=== PATIENT | female | born 1970 | race Caucasian/White ===

== ENCOUNTER → 2016-10-31 | Outpatient (CLI) | payer BC ==
[~2016-10-31] MED LIST: BCPILLS PO; LEVO75TA5 PO; METO25TA3 PO
[2016-10-31 12:32] LABS: ALT/SGPT 65 U/L (12-78); BLOOD UREA NITROGEN 13 mg/dl (7-18); BUN/CREATININE RATIO 14.5 (10-20); CALCIUM 8.6 mg/dl (8.5-10.1); CARBON DIOXIDE 22 mmol/L (21-32); CHLORIDE 108 mmol/L (98-107); CREATININE 0.89 mg/dl (0.60-1.20); GLUCOSE 84 mg/dl (70-99); POTASSIUM 4.3 mmol/L (3.5-5.1); SODIUM 140 mmol/L (136-145)
[2016-10-31 12:42] LABS: ALKALINE PHOSPHATASE 68 U/L (45-117); AST/SGOT 32 U/L (15-37); CHOLESTEROL 151 mg/dl (0-200); CHOLESTEROL/HDL RATIO 2.1; HDL CHOLESTEROL 73 mg/dl; LDL CHOLESTEROL CALCULATED 54 mg/dl; TRIGLYCERIDES 122 mg/dl (0-150); VERY LOW DENSITY LIPOPROT CALC 24 mg/dl
== END | disposition home or self-care (01) ==
LOC: C.LABBFT 07:45
PROVIDERS: ATTEND Internal Medicine
DX: E03.9 Hypothyroidism, unspecified (principal); I10 Essential (primary) hypertension

== ENCOUNTER → 2016-11-09 | Outpatient (CLI) | payer BC | END | disposition home or self-care (01) | LOC: C.PAPS 13:36 | PROVIDERS: ATTEND Obstetrics & Gynecology | DX: Z01.419 Encounter for gynecological examination (general) (routine) without abnormal findings (principal) ==

== ENCOUNTER 2017-01-07 21:49 | Emergency (ER) | payer BC ==
[~2017-01-07] VITALS: Ht 162.6 cm; Wt 67.7 kg
[2017-01-07] MEDS ORDERED: METOCLOPRAMIDE HCL INJ 5 MG/ML 2 ML VIAL IV STA (22:03)
[2017-01-07] MEDS ORDERED: CEFTRIAXONE SOD INJ 2,000 MG in DEXTROSE 5% 50ML 50 ML IV STA (22:03)
[2017-01-07] MEDS ORDERED: DiphenhydrAMINE HCL 50 MG/ML VIAL IV STA (22:03)
[2017-01-07] MEDS ORDERED: SODIUM CHLORIDE 0.9% 1000ML 2,000 ML IV STA (22:03)
[2017-01-07] MEDS ORDERED: SODIUM CHLORIDE 0.9% 1000ML 1,000 ML IV STA (22:03)
[2017-01-07] MEDS ORDERED: DEXAMETHASONE SOD INJ 10 MG/ML VIAL IV ONE (22:15)
[2017-01-07 22:34] VITALS: Ht 162.6 cm; Wt 67.7 kg
--- NOTE | 2017-01-07 22:41 | DIAGNOSTIC IMAGING REPORT ---
CHEST ONE VIEW PORTABLE HISTORY: Sepsis COMPARISON: None. FINDINGS: The lungs are clear. Cardiac silhouette is normal in size. No pleural effusions. No pneumothorax. IMPRESSION: No acute process. Electronically signed by: Wilfrid Guzman M.D. 01/07/2017 10:40 PM Dictated Date/Time: 01/07/2017 10:39 PM
[2017-01-07 22:48] LABS: COMPLETE YES; HEMATOCRIT 35.8 % (37-47); LYMPH ABS # 0.25 K/uL (1.2-3.4); MEAN CELL VOLUME 82.9 fL (80-100); MEAN CORPUSCULAR HEMOGLOBIN 28.2 pg (25-34); MEAN CORPUSCULAR HGB CONC 34.1 g/dl (32-36); MEAN PLATELET VOLUME 9.8 fL (7.4-10.4); MONO % 0.4 %; NEUT % 90.6 %; PLATELET COUNT 196 K/uL (130-400); RED BLOOD COUNT 4.32 M/uL (4.2-5.4); WHITE BLOOD COUNT 2.79 K/uL (4.8-10.8)
[2017-01-07 23:01] LABS: PARTIAL THROMBOPLASTIN RATIO 0.9; PROTHROMBIN TIME (PATIENT) 10.8 SECONDS (9.0-12.0)
[2017-01-07 23:07] VITALS: O2SAT 96
[2017-01-07 23:09] LABS: BUN/CREATININE RATIO 9.7 (10-20); CALCIUM 8.2 mg/dl (8.5-10.1); CREATININE 0.97 mg/dl (0.60-1.20)
[2017-01-07] MEDS ORDERED: POTASSIUM CHLORIDE 10 MEQ TABCR PO STA ×2 (23:10→23:23)
[2017-01-07] MEDS ORDERED: ACETAMINOPHEN 500 MG TAB PO STA (23:10)
[2017-01-07] MEDS ORDERED: POTASSIUM CHLORIDE 10 MEQ / 100ML WTR IV STA ×2 (23:10→23:23)
[2017-01-07 23:17] LABS: PREG INTERNAL NEGATIVE QC NEG CLEAR BACKGROUND; PREG INTERNAL POSITIVE QC POS CONTROL LINE
[2017-01-07 23:57] LABS: MAGNESIUM 1.6 mg/dl (1.8-2.4)
[2017-01-08 00:05] LABS: CSF APPEARANCE CLEAR; CSF CHEMISTRY TUBE # 2; CSF COLOR COLORLESS; CSF XANTHOCHROMIC NO XANTHOCHROMIA
[2017-01-08] MEDS ORDERED: MAGNESIUM SULFATE 1GM / D5W 1 GM BAG IV STA (00:09)
[2017-01-08 00:26] LABS: LYME DISEASE AB IGG NEG (NEG); LYME DISEASE AB IGM NEG (NEG)
[2017-01-08 00:31] LABS: CSF APPEARANCE CLEAR; CSF COLOR COLORLESS; CSF XANTHOCHROMIC NO XANTHOCHROMIA
[2017-01-08] MEDS ORDERED: IBUPROFEN 600 MG TAB PO STA (00:40)
[2017-01-08 00:44] LABS: CSF TOTAL PROTEIN 31.9 mg/dl (15.0-45.0)
[2017-01-08] MEDS ORDERED: ONDANSETRON HOME PACK 4MG OD TAB PO ONE (00:45)
[2017-01-08 01:02] LABS: INFLUENZA A PCR Neg for Influ A (NEG); INFLUENZA B PCR Neg for Influ B (NEG)
--- NOTE | 2017-01-08 01:04 | EMERGENCY ROOM VISIT NOTE ---
History First contact with patient: 21:55 Chief Complaint: ILLNESS Stated Complaint: STIFF NECK,FEVER,HIGH BLOOD PRESSURE History of Present Illness The patient is a 46 year old female who presents to the Emergency Room with complaints of headache, neck stiffness, fevers, nausea, abdominal discomfort for the past few days who just returned from [place] by train. Patient states Tmax 102. Patient denies sore throat, cough, congestion, vomiting, urinary symptoms, lightheadedness, dizziness. She's not taking anything for her symptoms. Review of Systems See HPI for pertinent positives & negatives. A total of 10 systems reviewed and were otherwise negative. Past Medical/Surgical History Medical Problems: (1) Hyperthyroidism Jeramy's, hypertension, breast reduction Family History No pertinent family history Social History Smoking Status: Never Smoker Alcohol Use: none Drug Use: none Marital Status: Housing Status: lives with family Occupation Status: unemployed Current/Historical Medications Scheduled Control Pills ( Control Pills), 1 TAB PO DAILY Levothyroxine Sodium (Levothyroxine Sodium), 75 MCG PO DAILY Metoprolol Succ (Toprol Xl) (Toprol-Xl), 25 MG PO DAILY Allergies Coded Allergies: Lisinopril (Verified Allergy, Unknown, SWELLING OF FACE, 01/07/17) Physical Exam Vital Signs Date Time Temp Pulse Resp B/P Pulse Ox O2 Delivery O2 Flow Rate FiO2 01/07/17 23:56 37.9 01/07/17 23:51 101 20 115/67 97 Room Air 01/07/17 23:07 96 Room Air 01/07/17 22:58 122 01/07/17 22:54 39.9 01/07/17 21:51 36.7 127 24 134/89 100 Room Air Physical Exam VITALS: Vitals are noted on the nurse's note and reviewed by myself. Vital signs tachycardic. GENERAL: Pleasant female mildly ill-appearing, nondiaphoretic, well-developed well-nourished. SKIN: The skin was without rashes, erythema, edema, or bruising. There is no tenting of the skin. Capillary reflex less than 2 seconds. HEAD: Normocephalic atraumatic. EARS: External auditory canals clear, tympanic membranes pearly solitario without erythema or effusion bilaterally. EYES: Pupils equal round and reactive to light and accommodation. Conjunctivae without injection, sclerae without icterus. Extraocular movements intact. NOSE: Patent, turbinates without inflammation or discharge. No sinus tenderness. MOUTH: Mucous membranes moist. Pharynx without erythema or exudate. Uvula midline. Airway patent. Tongue does not deviate. NECK: Supple, pain with chin to chest to the posterior neck. No lymphadenopathy. No thyromegaly. Cervical spine is nontender. No JVD. HEART: Tachycardic Regular rate and rhythm without murmurs gallops or rubs. LUNGS: Clear to auscultation bilaterally without wheezes, rales or rhonchi. No dullness to percussion. No retractions or accessory muscle use. ABDOMEN: Positive bowel sounds x 4. Normal tympanic percussion. Soft, nontender, without masses or organomegaly. Bravo sign negative. No guarding or rebound tenderness. No CVA tenderness MUSCULOSKELETAL: No muscle atrophy, erythema, or edema noted. NEURO: Patient was alert and oriented to person place and time. Normal sensation to light and sharp touch. No focal neurological deficits. Medical Decision & Procedures Laboratory Results 01/07/17 22:29 Red Blood Count 4.32, Mean Corpuscular Volume 82.9, Mean Corpuscular Hemoglobin 28.2, Mean Corpuscular Hemoglobin Concent 34.1, Mean Platelet Volume 9.8, Neutrophils (%) (Auto) 90.6, Lymphocytes (%) (Auto) 9.0, Monocytes (%) (Auto) 0.4, Eosinophils (%) (Auto) 0.0, Basophils (%) (Auto) 0.0, Neutrophils # (Auto) 2.53, Lymphocytes # (Auto) 0.25, Monocytes # (Auto) 0.01, Eosinophils # (Auto) 0.00, Basophils # (Auto) 0.00 01/07/17 22:29 Test 01/07/17 22:29 01/07/17 22:37 01/07/17 22:54 01/07/17 23:30 White Blood Count 2.79 K/uL (4.8-10.8) Red Blood Count 4.32 M/uL (4.2-5.4) Hemoglobin 12.2 g/dL (12.0-16.0) Hematocrit 35.8 % (37-47) Mean Corpuscular Volume 82.9 fL (80-100) Mean Corpuscular Hemoglobin 28.2 pg (25-34) Mean Corpuscular Hemoglobin Concent 34.1 g/dl (32-36) Platelet Count 196 K/uL (130-400) Mean Platelet Volume 9.8 fL (7.4-10.4) Neutrophils (%) (Auto) 90.6 % Lymphocytes (%) (Auto) 9.0 % Monocytes (%) (Auto) 0.4 % Eosinophils (%) (Auto) 0.0 % Basophils (%) (Auto) 0.0 % Neutrophils # (Auto) 2.53 K/uL (1.4-6.5) Lymphocytes # (Auto) 0.25 K/uL (1.2-3.4) Monocytes # (Auto) 0.01 K/uL (0.11-0.59) Eosinophils # (Auto) 0.00 K/uL (0-0.5) Basophils # (Auto) 0.00 K/uL (0-0.2) RDW Standard Deviation 42.0 fL (36.4-46.3) RDW Coefficient of Variation 13.7 % (11.5-14.5) Immature Granulocyte % (Auto) 0.0 % Immature Granulocyte # (Auto) 0.00 K/uL (0.00-0.02) Prothrombin Time 10.8 SECONDS (9.0-12.0) Prothromb Time International Ratio 1.0 (0.9-1.1) Activated Partial Thromboplast Time 23.9 SECONDS (21.0-31.0) Partial Thromboplastin Ratio 0.9 Anion Gap 10.0 mmol/L (3-11) Est Creatinine Clear Calc Drug Dose 69.3 ml/min Estimated GFR () 81.8 Estimated GFR (Non- 70.5 BUN/Creatinine Ratio 9.7 (10-20) Calcium Level 8.2 mg/dl (8.5-10.1) Magnesium Level 1.6 mg/dl (1.8-2.4) Total Bilirubin 0.7 mg/dl (0.2-1) Aspartate Amino Transf (AST/SGOT) 31 U/L (15-37) Alanine Aminotransferase (ALT/SGPT) 31 U/L (12-78) Alkaline Phosphatase 68 U/L (45-117) Total Protein 7.2 gm/dl (6.4-8.2) Albumin 3.6 gm/dl (3.4-5.0) Globulin 3.6 gm/dl (2.5-4.0) Albumin/Globulin Ratio 1.0 (0.9-2) Human Chorionic Gonadotropin, Qual NEG (NEG) Lyme Disease IgG Antibody NEG (NEG) Lyme Disease IgM Antibody NEG (NEG) Bedside Lactic Acid Venous 1.77 mmol/L (0.90-1.70) Influenza Type A Antigen Neg for Influ A (NEG) Influenza Type B Antigen Neg for Influ B (NEG) CSF Color COLORLESS CSF Appearance CLEAR CSF WBC 2 /uL (0-5) CSF RBC 0 /uL (0) CSF Xanthrochromic NO XANTHOCHROMIA CSF Cell Count Tube # 1 CSF Chemistry Tube # 2 CSF Glucose 53 mg/dl (40-70) CSF Total Protein 31.9 mg/dl (15.0-45.0) Medications Administered Medications (Trade) Dose Ordered Sig/Yessica Route Start Time Stop Time Status Last Admin Dose Admin Sodium Chloride 2,000 ml @ 999 mls/hr Q2H1M STAT IV 01/07/17 22:03 01/08/17 00:03 DC 01/07/17 22:40 999 MLS/HR Sodium Chloride (Nss 1000ml) 1,000 ml @ 125 mls/hr Q8H STAT IV 01/07/17 22:03 01/08/17 06:02 01/07/17 23:28 125 MLS/HR Dexamethasone Sodium Phosphate (Decadron Inj) 10 mg NOW ONCE IV 01/07/17 22:15 01/07/17 22:16 DC 01/07/17 22:39 10 MG Diphenhydramine HCl (Benadryl Inj) 12.5 mg NOW STAT IV 01/07/17 22:03 01/07/17 22:06 DC 01/07/17 22:39 12.5 MG Metoclopramide HCl 10 mg 10 mg NOW STAT IV 01/07/17 22:03 01/07/17 22:06 DC 01/07/17 22:39 10 MG Ceftriaxone Sodium/Dextrose (Rocephin Inj/D5 50ml) 70 ml @ 100 mls/hr ONE STAT IV 01/07/17 22:03 01/07/17 22:44 DC 01/07/17 23:14 100 MLS/HR Acetaminophen (Tylenol Tab) 1,000 mg NOW STAT PO 01/07/17 23:10 01/07/17 23:11 DC 01/07/17 23:14 1,000 MG Potassium Chloride (Klor-Con M10) 40 meq NOW STAT PO 01/07/17 23:23 01/07/17 23:25 DC 01/07/17 23:28 40 MEQ Potassium Chloride (Kcl 10 Meq / Wtr) 10 meq NOW STAT IV 01/07/17 23:23 01/07/17 23:25 DC 01/07/17 23:28 10 MEQ Magnesium Sulfate (Magnesium Sulfate) 2 gm NOW STAT IV 01/08/17 00:09 01/08/17 00:11 DC 01/08/17 00:45 2 GM Ibuprofen (Motrin Tab) 600 mg NOW STAT PO 01/08/17 00:40 01/08/17 00:41 DC 01/08/17 00:45 600 MG ED Course Prior records/ancillary studies reviewed. Triage Nursing notes reviewed. Additional history obtained from family. The patient's history was concerning for fever. Differential diagnosis: Etiologies such as viral syndrome, otitis, pharyngitis, pneumonia, influenza, meningitis, urinary tract infection, sepsis, bacteremia, as well as others were entertained. Physical examination: Patient is alert, ill-appearing ER treatment provided: IV fluids, Rocephin, Decadron On reassessment the patient felt better. Diagnostics interpreted by me: ECG: Normal sinus, normal intervals, T wave inversions in the anteroseptal leads , rate of 120. Impression sinus tachycardia T wave in the anteroseptal leads most likely rate dependent interpreted by myself The labs revealed stable H&H. Mildly elevated lactic. Negative CSF, blood cultures pending Imaging studies: Head CT negative for intercranial bleed per stat radiology HISTORY: Sepsis COMPARISON: None. FINDINGS: The lungs are clear. Cardiac silhouette is normal in size. No pleural effusions. No pneumothorax. IMPRESSION: No acute process. Electronically signed by: Wilfrid Guzman M.D. This appears to be consistent with headache and fever most likely viral in etiology. CSF was negative for meningitis. Blood cultures are pending. Flu was negative. Systems negative. Patient felt much better after being medicated as above. She is advised to rest, stay well-hydrated and to follow-up family care in a few days or here in the ER sooner for spinal headache, fevers, neck stiffness, worsening signs or symptoms or as needed. Patient was neurovascularly and neurologically intact. She felt greatly improved after being medicated as above. By the evaluation outlined above emergent etiologies such as otitis, pharyngitis, pneumonia, meningitis, urinary tract infection, sepsis, bacteremia , as well as others were deemed relatively unlikely. The pt informed about the findings as listed above. All questions were answered and pleased with the treatment. Return instructions were outlined and the patient was discharged in stable condition. Outpatient prescription management: Zofran Referral: The patient was referred back to their primary care physician for follow-up in 2 to 3 days for a recheck of the current condition. Case reviewed with my attending Medical Decision As above Impression Primary Impression: Viral illness Additional Impressions: Hypokalemia Headache Hypomagnesemia Fever Departure Information Referrals RV. Charles MD (PCP) Patient Instructions My [facility] Problem Qualifiers
[2017-01-08 02:36] VITALS: BP 101/67; PULSE 85; TEMP 36.9; O2SAT 97
--- NOTE | 2017-01-08 06:24 | DIAGNOSTIC IMAGING REPORT ---
HEAD CT NONCONTRAST CT DOSE: 614.27 mGy.cm HISTORY: Mental status change NICHOLS/neck stiff TECHNIQUE: Multiaxial CT images of the head were performed without the use of intravenous contrast. Comparison: None. Findings: The paranasal sinuses and mastoid air cells are clear. The calvarium and skull base are intact. The ventricles and sulci are within normal limits. There is no mass, hematoma, midline shift, or acute infarct. Impression: No acute intracranial abnormality. Electronically signed by: Willie Martinez M.D. 01/08/2017 6:23 AM Dictated Date/Time: 01/08/2017 6:21 AM
[2017-01-09] MEDS ORDERED: LEVO75TA5 PO (05:06)
[2017-01-09] MEDS ORDERED: BCPILLS PO (05:06)
--- NOTE | 2017-01-09 09:58 | EDITING REQUIRED CODING QUERY ---
CODING QUERY To promote full compliance with coding requirements relating to patient care, provider participation is requested in all cases of senior engineering team leader uncertainty. Please assist us with the question(s) below: Coding Question(s): Note states in several places that the CSF was negative, however there is nothing noting the procedure was actually done. Can you please confirm and add a note about the procedure? Physician's Response(s): I did a LP on the patient. Thank you Lina Stapleton Principal Diagnosis: "_that condition established after study, to be chiefly responsible for occasioning the admission of the patient to the hospital for care." Co-Existing Principal Diagnosis: "_when two or more diagnoses equally meet the criteria for principal diagnosis as determined by the circumstances of admission, diagnostic work up, and/or therapy provided, and the Alphabetic Index, Tabular List, or another coding guideline does not provide sequencing direction, any one of the diagnoses may be sequenced first." "When the physician has documented what appears to be a current diagnosis in the body of the record, but has not included the diagnosis in the final diagnostic statement, the physician should be asked whether the diagnosis should be added." (Source Coding [facility] 2 QTR90. p3-4)
[2017-01-09] MEDS ORDERED: METO25TA3 PO (22:13)
== END 2017-01-08 02:52 | disposition home or self-care (01) ==
LOC: C.EDB 21:51 → C.EDA 01-08 02:52
DX: B34.9 Viral infection, unspecified (principal); E87.6 Hypokalemia; R51 Headache; E83.42 Hypomagnesemia; R50.9 Fever, unspecified; M43.6 Torticollis; E05.90 Thyrotoxicosis, unspecified without thyrotoxic crisis or storm; E06.3 Autoimmune thyroiditis; I10 Essential (primary) hypertension; Z79.3 Long term (current) use of hormonal contraceptives

== ENCOUNTER 2017-01-09 15:31 | Emergency (ER) | payer BC ==
[~2017-01-09] VITALS: Ht 162.6 cm; Wt 67.0 kg
[~2017-01-09 15:31] MED LIST changes: -METO25TA3 PO
[2017-01-09 15:35] VITALS: TEMP 36.7; Ht 162.6 cm; Wt 67.0 kg
[2017-01-09] MEDS ORDERED: KETOROLAC TROMETHAMINE 30 MG/ML VIAL IV STA (15:46)
[2017-01-09] MEDS ORDERED: SODIUM CHLORIDE 0.9% 1000ML 2,000 ML IV STA (15:46)
[2017-01-09] MEDS ORDERED: CAFFEINE CITRATE IV SCH (15:46)
[2017-01-09] MEDS ORDERED: ONDANSETRON INJ 2 MG/ML 2 ML VIAL IV STA (15:46)
[2017-01-09] MEDS ORDERED: PROMETHAZINE HCL INJ 6.25 MG in SODIUM CHLORIDE 0.9% 50ML 50 ML IV STA (15:46)
[2017-01-09] MEDS ORDERED: DiphenhydrAMINE HCL 50 MG/ML VIAL IV STA (15:46)
[2017-01-09] MEDS ORDERED: DEXTROSE 5% IV SCH (15:46)
--- NOTE | 2017-01-09 16:02 | EMERGENCY ROOM VISIT NOTE ---
History Report prepared by Sandra: Claire Baca Under the Supervision of: Dr. Teofilo Norman M.D. First contact with patient: 15:39 Chief Complaint: HEADACHE Stated Complaint: VOMITING, SEVERE HEADACHE History of Present Illness The patient is a 46 year old female who presents to the Emergency Room with complaints of persistent headache starting 2 days ago. She was seen in the ED 2 days ago and diagnosed with viral illness. Lab tests showed low WBC consistent with a virus. She had a spinal tap with no evidence of meningitis. Since then she has had a headache. She describes it as a pressure in the back of her head. Her headache improves when she is lying flat and worsens when she stands up. She has been taking Tylenol and Motrin to no significant relief. She has begun to vomit. She had some blood when blowing her nose. She reports pressure in her lower back. She denies any numbness, weakness, diarrhea, fever, abdominal pain, cough, or urinary symptoms. Source of History: patient Onset: 2 days ago Position: head Quality: pressure Timing: other (persistent) Modifying Factors (Worsening): other (standing) Modifying Factors (Relieving): other (lying flat) Associated Symptoms: + vomiting, No abdominal pain, No cough, No diarrhea, No fevers, No numbness, No urinary symptoms, No weakness Note: Pt reports blood when blowing nose, lower back pressure. Review of Systems See HPI for pertinent positives & negatives. A total of 10 systems reviewed and were otherwise negative. Past Medical & Surgical Medical Problems: (1) Hyperthyroidism Family History No pertinent family history Social History Smoking Status: Never Smoker Alcohol Use: none Drug Use: none Marital Status: Housing Status: lives with family Occupation Status: unemployed Current/Historical Medications Scheduled Control Pills ( Control Pills), 1 TAB PO DAILY Levothyroxine Sodium (Levothyroxine Sodium), 75 MCG PO DAILY Metoprolol Succ (Toprol Xl) (Toprol-Xl), 25 MG PO DAILY Allergies Coded Allergies: Lisinopril (Verified Allergy, Unknown, SWELLING OF FACE, 01/09/17) Physical Exam Vital Signs Date Time Temp Pulse Resp B/P Pulse Ox O2 Delivery O2 Flow Rate FiO2 01/09/17 17:33 66 18 144/93 100 Room Air 01/09/17 16:41 85 01/09/17 16:30 100 Room Air 01/09/17 15:35 36.7 82 16 166/96 98 Room Air Physical Exam GENERAL: Patient is in no acute distress. HEENT: No acute trauma, normocephalic atraumatic, mucous membranes moist, no nasal congestion, no scleral icterus. Pupils equal and reactive to light. NECK: No stridor, no adenopathy, no meningismus, trachea is midline. LUNGS: Clear to auscultation bilaterally, no wheeze, no rhonchi, breath sounds equal. HEART: Without murmurs gallops or rubs, regular rate and rhythm. ABDOMEN: Soft, nontender, bowel sounds positive, no hernias, no peritonitis. EXTREMITIES: No cyanosis or edema, full range of motion of all the joints without pain or difficulty, no signs for acute trauma. NEUROLOGIC: Oriented x 3, no acute motor or sensory deficits, no focal weakness. No pronator drift or cerebellar dysfunction. SKIN: No rash, no jaundice, no diaphoresis. Medical Decision & Procedures Laboratory Results 01/09/17 16:05 Red Blood Count 4.73, Mean Corpuscular Volume 82.7, Mean Corpuscular Hemoglobin 27.1, Mean Corpuscular Hemoglobin Concent 32.7, Mean Platelet Volume 10.0, Neutrophils (%) (Auto) 71.5, Lymphocytes (%) (Auto) 24.4, Monocytes (%) (Auto) 3.6, Eosinophils (%) (Auto) 0.3, Basophils (%) (Auto) 0.1, Neutrophils # (Auto) 4.89, Lymphocytes # (Auto) 1.67, Monocytes # (Auto) 0.25, Eosinophils # (Auto) 0.02, Basophils # (Auto) 0.01 01/09/17 16:05 Test 01/09/17 16:05 White Blood Count 6.85 K/uL (4.8-10.8) Red Blood Count 4.73 M/uL (4.2-5.4) Hemoglobin 12.8 g/dL (12.0-16.0) Hematocrit 39.1 % (37-47) Mean Corpuscular Volume 82.7 fL (80-100) Mean Corpuscular Hemoglobin 27.1 pg (25-34) Mean Corpuscular Hemoglobin Concent 32.7 g/dl (32-36) Platelet Count 278 K/uL (130-400) Mean Platelet Volume 10.0 fL (7.4-10.4) Neutrophils (%) (Auto) 71.5 % Lymphocytes (%) (Auto) 24.4 % Monocytes (%) (Auto) 3.6 % Eosinophils (%) (Auto) 0.3 % Basophils (%) (Auto) 0.1 % Neutrophils # (Auto) 4.89 K/uL (1.4-6.5) Lymphocytes # (Auto) 1.67 K/uL (1.2-3.4) Monocytes # (Auto) 0.25 K/uL (0.11-0.59) Eosinophils # (Auto) 0.02 K/uL (0-0.5) Basophils # (Auto) 0.01 K/uL (0-0.2) RDW Standard Deviation 42.5 fL (36.4-46.3) RDW Coefficient of Variation 14.0 % (11.5-14.5) Immature Granulocyte % (Auto) 0.1 % Immature Granulocyte # (Auto) 0.01 K/uL (0.00-0.02) Anion Gap 9.0 mmol/L (3-11) Est Creatinine Clear Calc Drug Dose 92.9 ml/min Estimated GFR () 117.2 Estimated GFR (Non- 101.1 BUN/Creatinine Ratio 8.3 (10-20) Calcium Level 8.7 mg/dl (8.5-10.1) Laboratory results reviewed by me. Medications Administered Medications (Trade) Dose Ordered Sig/Yessica Route Start Time Stop Time Status Last Admin Dose Admin Sodium Chloride (Nss 1000ml) 2,000 ml @ 999 mls/hr Q2H1M STAT IV 01/09/17 15:46 01/09/17 17:46 DC 01/09/17 16:27 999 MLS/HR Ondansetron HCl (Zofran Inj) 4 mg NOW STAT IV 01/09/17 15:46 01/09/17 15:49 DC 01/09/17 16:29 4 MG Ketorolac Tromethamine (Toradol Inj) 30 mg NOW STAT IV 01/09/17 15:46 01/09/17 15:49 DC 01/09/17 16:29 30 MG Diphenhydramine HCl 25 mg 25 mg NOW STAT IV 01/09/17 15:46 01/09/17 15:49 DC 01/09/17 16:28 25 MG Promethazine HCl 6.25 mg/Sodium Chloride 50.25 ml @ 204 mls/hr NOW STAT IV 01/09/17 15:46 01/09/17 16:00 DC 01/09/17 16:28 204 MLS/HR Caffeine Citrated/ Dextrose (Caffeine Citrate/D5 50ml) 75 ml @ 100 mls/hr TODAY@1546 IV 01/09/17 15:46 01/09/17 23:59 01/09/17 16:45 100 MLS/HR ED Course 1542: The patient was evaluated in room B11B. A complete history and physical exam was performed. 1546: Caffeine Citrated 500 mg/Dextrose 75 ml @ 100 mls/hr IV, Promethazine HCl 6.25 mg/Sodium Chloride 50.25 ml @ 204 mls/hr IV, Benadryl Inj 25 mg IV, Toradol Inj 30 mg IV, Zofran Inj 4 mg IV, NSS 2000 ml @ 999 mls/hr IV. 1655: I reevaluated the patient. She is feeling better. I will consult with anesthesiology to determine the best course of action. 1716: I discussed the patient's case with Dr. Fabian, [facility] - anesthesiology. He will come evaluate the patient and decide upon whether or not to do a blood patch. 1742: I reevaluated the patient. She felt OK standing up to go to the bathroom. Anesthesiology has not yet arrived. 1800: The patient was signed out to Dr. Senior at the end of my shift. Medical Decision Differential diagnosis: dehydration, spinal headache, flu like illness, electrolyte imbalance, anemia, meningitis, intracranial bleeding, migraine There is no leukocytosis or concerning anemia. No significant electrolyte abnormality or kidney failure. The patient is not febrile or toxic in appearance. She has a nonfocal neurologic evaluation. She describes a headache which is positional and consistent with a spinal headache. Patient received IV saline, IV Phenergan, IV Zofran, IV Benadryl and IV Toradol. She was given IV caffeine. She is feeling improved. I did have the anesthesiologist paged. The patient will be seen by anesthesia for the possibility of undergoing a blood patch. Of note, the patient has been up to the bathroom. She did well with really no headache. She was slightly lightheaded though. Her care is being assumed by Dr. Carmelo Senior at the change of shift. We still are waiting the anesthesiologist's evaluation. Consults Time Called: 1655 Consulting Physician: Dr. Fabian, [facility] - anesthesiology Returned Call: [phone] I discussed the patient's case with him. He will come evaluate the patient and decide upon whether or not to do a blood patch. Impression Primary Impression: Dehydration Additional Impressions: Vomiting Spinal headache Scribe Attestation The scribe's documentation has been prepared under my direction and personally reviewed by me in its entirety. I confirm that the note above accurately reflects all work, treatment, procedures, and medical decision making performed by me. Departure Information Dispostion Still a Patient Referrals RV. Charles MD (PCP) Patient Instructions My [facility] Problem Qualifiers
[2017-01-09 16:21] LABS: BASO % 0.1 %; BASO ABS # 0.01 K/uL (0-0.2); COMPLETE YES; EOS % 0.3 %; HEMATOCRIT 39.1 % (37-47); IG% 0.1 %; LYMPH % 24.4 %; LYMPH ABS # 1.67 K/uL (1.2-3.4); MEAN CELL VOLUME 82.7 fL (80-100); MEAN CORPUSCULAR HEMOGLOBIN 27.1 pg (25-34); MEAN CORPUSCULAR HGB CONC 32.7 g/dl (32-36); MONO % 3.6 %; NEUT % 71.5 %; PLATELET COUNT 278 K/uL (130-400); RED BLOOD COUNT 4.73 M/uL (4.2-5.4); WHITE BLOOD COUNT 6.85 K/uL (4.8-10.8)
[2017-01-09 16:30] VITALS: O2SAT 100
[2017-01-09 16:52] LABS: BUN/CREATININE RATIO 8.3 (10-20); CALCIUM 8.7 mg/dl (8.5-10.1); CREATININE 0.72 mg/dl (0.60-1.20); POTASSIUM 3.7 mmol/L (3.5-5.1)
--- NOTE | 2017-01-09 19:23 | Anesthesiology Progress Note ---
Anesthesia Progress Note Date of Service January 09, 2017. Progress Notes I was called by Dr. Norman regarding a possible postdural puncture headache. I evaluated the patient in the ER. The patient recently had a dural puncture to rule out meningitis, which came back negative. She states having a positional headache that improves when laying down. I spoke to the patient concerning the risks/benefits of an epidural blood patch. I also suggested conservative therapy , which consisted of fluids, over the counter analgesics, and caffeine. The patient chose to have an epidural blood patch. Consent was obtained from the patient. A timeout was completed before starting the procedure. The back was prepped sterilely. L3-4 space was identified. A skin wheal with 1% lidocaine was made. A 17G Touhy needle was advance until + ANAND to air. 20mL was sterilely obtained from the pt's LUE. 20mL was inserted to the epidural space. The pt stated improvement after the procedure. I told the patient to return to the ER if her headache returned, if she develops back pain, if she develops fevers/ chills, or if she develops a gait disturbance. The pt was understanding. Care was returned to the ER.
[2017-01-09 20:03] VITALS: BP 152/96; PULSE 71; O2SAT 100
[2017-01-09] MEDS ORDERED: METO25TA3 PO (22:13)
--- NOTE | 2017-01-10 00:27 | EMERGENCY ROOM VISIT NOTE ---
ED Visit Note 46 yr old female signed out to me awaiting Anesthesia evaluation for post LP spinal headache treatment. She was given blood patch. Feeling much improved. Discharged feeling well and in no distress.
== END 2017-01-09 20:19 | disposition home or self-care (01) ==
LOC: C.EDB 15:32
DX: E86.0 Dehydration (principal); R11.10 Vomiting, unspecified; T88.59XA Other complications of anesthesia, initial encounter; R51 Headache; E05.90 Thyrotoxicosis, unspecified without thyrotoxic crisis or storm; Z79.3 Long term (current) use of hormonal contraceptives

== ENCOUNTER → 2017-04-18 | Outpatient (CLI) | payer BC ==
[~2017-04-18] MED LIST changes: +METO25TA3 PO
== END | disposition home or self-care (01) ==
LOC: C.LABBFT 10:21
PROVIDERS: ATTEND Internal Medicine
DX: E03.9 Hypothyroidism, unspecified (principal)

== ENCOUNTER → 2017-09-13 | Outpatient (CLI) | payer BC | END | disposition home or self-care (01) | LOC: C.PATHSPEC 17:32 | PROVIDERS: ATTEND Dermatology | DX: C44.712 Basal cell carcinoma of skin of right lower limb, including hip (principal) ==

== ENCOUNTER → 2017-09-17 | Outpatient (CLI) | payer BC ==
--- NOTE | 2017-09-18 14:37 | MAMMOGRAPHY REPORT ---
BILATERAL DIGITAL SCREENING MAMMOGRAM TOMOSYNTHESIS WITH CAD: 09/17/2017 CLINICAL HISTORY: Routine screening. TECHNIQUE: Breast tomosynthesis in addition to standard 2D mammography was performed. Current study was also evaluated with a Computer Aided Detection (CAD) system. COMPARISON: Comparison is made to exams dated: 04/06/2016 mammogram, 03/30/2015 mammogram, 11/28/2013 manjula mogram, 11/22/2012 mammogram, 11/07/2011 mammogram, and 09/15/2010 mammogram - [facility]. BREAST COMPOSITION: There are scattered areas of fibroglandular density in both breasts. FINDINGS: There are a few scattered stable benign-appearing calcifications in the breasts. No new ivesron spicious mass, architectural distortion or cluster of microcalcifications is seen. IMPRESSION: ACR BI-RADS CATEGORY 1: NEGATIVE There is no mammographic evidence of malignancy. A 1 year screening mammogram is recommended. The pa tient will receive written notification of the results. Approximately 10% of breast cancers are not detected with mammography. A negative mammographic report should not delay biopsy if a clinically suggestive mass is present. Lori Bowser M.D. ay/:09/17/2017 15:07:11 Recovery Agent: Ezekiel SPEARS(R)(Janice), [facility] letter sent: Normal 1/2 BI-RADS Code: ACR BI-RADS Category 1: Negative
== END | disposition home or self-care (01) ==
LOC: C.MAMM 14:11
PROVIDERS: ATTEND Internal Medicine
DX: Z12.31 Encounter for screening mammogram for malignant neoplasm of breast (principal)

== ENCOUNTER → 2017-12-31 | Outpatient (CLI) | payer BC | END | disposition home or self-care (01) | LOC: C.PAPS 15:32 | PROVIDERS: ATTEND Obstetrics & Gynecology | DX: Z01.419 Encounter for gynecological examination (general) (routine) without abnormal findings (principal) ==

== ENCOUNTER → 2018-03-18 | Outpatient (CLI) | payer BC ==
[2018-03-18 17:45] LABS: BASO % 0.2 %; BASO ABS # 0.01 K/uL (0-0.2); EOS % 0.8 %; EOS ABS # 0.05 K/uL (0-0.5); HEMATOCRIT 42.3 % (37-47); HEMOGLOBIN 14.2 g/dL (12.0-16.0); IG# 0.01 K/uL (0.00-0.02); LYMPH % 40.6 %; MEAN CELL VOLUME 88.5 fL (80-100); MEAN CORPUSCULAR HEMOGLOBIN 29.7 pg (25-34); MEAN CORPUSCULAR HGB CONC 33.6 g/dl (32-36); MEAN PLATELET VOLUME 10.9 fL (7.4-10.4); MONO % 7.8 %; MONO ABS # 0.52 K/uL (0.11-0.59); NEUT % 50.4 %; NEUT ABS # 3.36 K/uL (1.4-6.5); PLATELET COUNT 320 K/uL (130-400); RED CELL DISTRIBUTION WIDTH CV 12.9 % (11.5-14.5); RED CELL DISTRIBUTION WIDTH SD 41.4 fL (36.4-46.3); WHITE BLOOD COUNT 6.65 K/uL (4.8-10.8)
[2018-03-18 18:05] LABS: BLOOD UREA NITROGEN 10 mg/dl (7-18); CALCIUM 9.2 mg/dl (8.5-10.1); CARBON DIOXIDE 23 mmol/L (21-32); CREATININE 0.91 mg/dl (0.60-1.20); GLUCOSE 91 mg/dl (70-99); POTASSIUM 4.3 mmol/L (3.5-5.1); SODIUM 138 mmol/L (136-145)
== END | disposition home or self-care (01) ==
LOC: C.LABBFT 15:29
PROVIDERS: ATTEND Nurse Practitioner Adult Health
DX: R10.2 Pelvic and perineal pain (principal)

== ENCOUNTER → 2018-03-22 | Outpatient (CLI) | payer BC ==
--- NOTE | 2018-03-22 09:04 | DIAGNOSTIC IMAGING REPORT ---
ABDOMINAL ULTRASOUND COMPLETE HISTORY: Generalized abdominal pain.. COMPARISON: None. FINDINGS: Pancreas: The pancreas demonstrates a normal echotexture. Liver: Unremarkable. Gallbladder: No gallbladder wall thickening. No gallstones. A 4 mm gallbladder polyp. CBD: 2 mm. Kidneys: No hydronephrosis. Spleen: Normal in size. Aorta: Normal in caliber. IVC: Patent. IMPRESSION: 1. A 4 mm gallbladder polyp. 2. Otherwise, no significant abnormality within the abdomen. Electronically signed by: Wilfrid Guzman M.D. 03/22/2018 9:03 AM Dictated Date/Time: 03/22/2018 9:01 AM
== END | disposition home or self-care (01) ==
LOC: C.ULTR 07:54
PROVIDERS: ATTEND Nurse Practitioner Adult Health
DX: R10.9 Unspecified abdominal pain (principal); K82.4 Cholesterolosis of gallbladder

== ENCOUNTER → 2018-03-27 | Outpatient (CLI) | payer BC ==
--- NOTE | 2018-03-27 14:52 | DIAGNOSTIC IMAGING REPORT ---
KUB HISTORY: Chronic constipation. Generalized abdominal pain. COMPARISON: Chest and abdominal series 03/30/2016. FINDINGS: The bowel gas pattern is unremarkable. There are no dilated loops of small bowel to suggest an obstruction. No renal calculi. No ureteral calculi. Calcifications in the deep pelvis likely represent phleboliths. No pneumoperitoneum or pneumatosis. Small amount of well-formed stool seen within the colon. IMPRESSION: 1. No evidence for bowel obstruction. 2. Small amount of well-formed stool seen within the colon. This is improved in the interval. Electronically signed by: Wilfrid Guzman M.D. 03/27/2018 2:51 PM Dictated Date/Time: 03/27/2018 2:50 PM
== END | disposition home or self-care (01) ==
LOC: C.RAD1850 14:30
PROVIDERS: ATTEND Nurse Practitioner Adult Health
DX: K59.09 Other constipation (principal); R10.9 Unspecified abdominal pain

== ENCOUNTER → 2018-04-04 | Outpatient (CLI) | payer BC ==
[~2018-04-04] MED LIST changes: +OPTIRAY 320 IV PRN
--- NOTE | 2018-04-04 13:45 | DIAGNOSTIC IMAGING REPORT ---
ABD/PELVIS IV AND ORAL CONT CLINICAL HISTORY: 48 years-old Female presenting with R10.32 LLQ pain. TECHNIQUE: Multidetector CT of the abdomen and pelvis was performed after the administration of oral and intravenous contrast. IV contrast: None. A dose lowering technique was used consistent with the principles of ALARA (as low as reasonably achievable). COMPARISON: None. CT DOSE (mGy.cm): The estimated cumulative dose is 672.89 mGycm. FINDINGS: Stump Blower topogram: Unremarkable. Lung bases: Lungs and pleural spaces clear. Normal heart size. No pericardial or pleural effusion. Liver: Normal morphology. No liver lesion. Patent hepatic vasculature. Biliary: No intrahepatic or extrahepatic biliary ductal dilatation. Gallbladder decompressed. Pancreas: Normal. Spleen: Normal. Adrenal glands: Normal. Kidneys and ureters: Normal. No hydronephrosis. Bladder: Normal. Pelvic organs: Uterus and ovaries normal. Dominant follicle noted in the left ovary. Bowel: Normal. No bowel obstruction. Peritoneal cavity: No free fluid or intraperitoneal gas. Lymph nodes: No enlarged lymph nodes in the abdomen or pelvis. Vasculature: Aorta and IVC patent and normal in caliber. Abdominal wall: Normal. Musculoskeletal: Normal. IMPRESSION: 1. No acute intra-abdominal pathology. Electronically signed by: Shayne Mason M.D. 04/04/2018 1:44 PM Dictated Date/Time: 04/04/2018 1:36 PM
== END | disposition home or self-care (01) ==
LOC: C.CTS 12:46
PROVIDERS: ATTEND Physician Assistant
DX: R10.32 Left lower quadrant pain (principal)

== ENCOUNTER 2025-06-02 20:11 | Inpatient (IN) ==
[2025-06-02 20:44] LABS: Hematocrit (blood only) 41.5 % (37.0-47.0); Hemoglobin 14.7 g/dl (12.0-16.0); Immature Granulocytes # (auto) 0.06 K/uL (0.01-0.20); Immature Granulocytes % (auto) 0.4 %; Mean Corpuscular Hemoglobin 29.6 pg (25.0-34.0); Mean Corpuscular Volume 83.7 fL (80.0-100.0); Platelet Count 338 K/uL (130-400); RDW Standard Deviation 35.0 fL (36.4-46.3); Red Blood Count 4.96 M/uL (4.20-5.40); White Blood Count 14.94 K/ul (4.8-10.8)
--- NOTE | 2025-06-02 20:52 | Emergency Department Note ---
Impression & Plan Acute appendicitis, Abdominal pain, Acute hypokalemia ED Provider Note NAME: JUDY IBRAHIM AGE: 55 SEX: F : 1970 ARRIVES VIA: Walk-In INFORMANT: Patient, ED PROVIDER(S): Cole Marley MD CHIEF COMPLAINT: Abdominal pain MEDICAL DECISION MAKING: Patient presents with the above. Patient does have periumbilical and right lower quadrant pain. IV was established and blood work was obtained. CT abdomen pelvis also ordered. Patient declining pain or nausea medication at this time. Patient did request pain medication and nausea medication. The patient was placed in a wheelchair and reportedly had a vagal episode and became very dizzy. The patient was placed back into bed. IV fluids ordered in addition to IV morphine 4 mg and IV Zofran 4 mg. Patient still having nausea so was ordered 5 of IV Reglan and 12.5 of IV Benadryl. Patient subsequently taken to CAT scan. Patient with white count of 14 with a normal hemoglobin and platelet count kidney function unremarkable. Mild hypokalemia at 2.9. Calcium of 10.6. LFTs unremarkable. Beta-hCG negative. Urinalysis does not show evidence of obvious infection. CT abdomen pelvis does show concern for acute appendicitis. No perforation or abscess. I did inform the patient of the findings. I did speak with the on-call general surgery team Eliecer Gonzalez PA-C under Dr. Oliveira. Recommended IV Zosyn is likely will take to the OR in the morning. Patient was admitted to the general surgery service. Liter of IV fluids. Discussion w/ other healthcare providers: Eliecer Gonzalez PA-C with Dr. Oliveira general surgery Prior /Outside records reviewed: none Differential diagnosis: Appendicitis, ovarian cyst, ovarian torsion, ectopic , TOA, PID, diverticulitis, UTI, obstruction, inflammatory bowel disease, renal colic, PUD, pancreatitis, biliary pathology, hernia, volvulus, constipation, as well as other pathologies were considered. Diagnostics, as interpreted by me: ECG: Normal sinus rhythm, rate of 97, normal intervals, normal axis no ST elevations. T wave version noted in lead III. Cardiac monitoring: An order was placed for continuous cardiac monitoring. The monitor shows a rate of 89 with sinus rhythm. Patient was placed on pulse oximetry Medical decision rules: None Imaging studies: I informally interpreted the patient's CT ab pelvis does not show evidence of obvious obstruction with formal report to follow. HPI: Patient presents due to concern for abdominal pain. Patient did admit that earlier today it seemed to be in her right upper quadrant but has been associated in the area around her [facility]. Patient has had some nausea but no vomiting. No known sick contacts and recent travel. The patient denies any chest pains or shortness of breath. She did feel little chilled yesterday. No chest pains or shortness of breath. Patient did take some Tums at home. Patient states that she did have a bowel movement this morning which was a little soft. No blood in urine or stool and denies any dysuria or hematuria. PAST MEDICAL HISTORY: See Below PAST SURGICAL HISTORY: See Below SOCIAL HISTORY: See Below HOME MEDICATIONS: See Below ALLERGIES: See Below VITALS: See Below PHYSICAL EXAMINATION: GENERAL: NAD, non-toxic. EYE EXAM: Normal conjunctiva. PERRL, no anisocoria and EOM's grossly intact w/o pain. OROPHARYNX: Moist mucus membranes, grossly normal dentition. NECK: Trachea midline, no stridor. LUNGS: Clear to auscultation. Normal chest wall mechanics. HEART: NSR, no MRG. ABDOMEN: Abdomen soft, periumbilical and right lower quadrant pain, negative obturators and psoas, no masses, no rebound or guarding. BACK: No CVA TTP. SKIN: No rashes and no bruising. UPPER EXTREMITIES: Upper extremities are grossly normal. LOWER EXTREMITIES: Grossly normal, no edema. NEURO EXAM: Awake and alert, follows commands, no obvious facial asymmetry, normal speech, moves all 4 extremities. Past Med/Surg History Problem List (Updated 06/03/25 @ 00:28 by Cole Marley MD) Acute hypokalemia (Acute) Abdominal pain (Acute) Acute appendicitis (Acute) Appendicitis Menopause Menopause Thyroid nodule Fatigue Low grade B-cell lymphoma Overweight (BMI 25.0-29.9) Vitamin B12 deficiency Left knee DJD Vestibular migraine Migraine without aura and responsive to treatment Abnormal finding on MRI of brain Numbness and tingling of both feet Numbness and tingling of both upper extremities Health care maintenance Acne vulgaris (Acute) Anxiety (Acute) Chronic constipation (Acute) Dysplastic nevus (Acute) Jeramy's thyroiditis (Acute) Hearing loss (Acute) Hypertension (Acute) Hypothyroidism (Acute) Neoplasm of uncertain behavior of skin (Acute) Medical History Tiredness Left knee pain Head ache Insomnia Abnormality of right breast on screening mammogram Breast calcification, right Right ear injury Surgical History Status post breast reduction H/O oral surgery Family History Grandfather (Paternal) Coronary heart disease Cancer Grandfather (Maternal) Coronary heart disease Myocardial infarction Father Guillain-[place] syndrome Hypertension Mother Hypertension Grandmother (Maternal) Breast cancer Grandfather (Paternal) Stroke Denies family history of Ovarian cancer Prostate cancer Colorectal cancer Social History Smoking Status: Never smoker Do You Dip or Chew Tobacco: No; Hx Alcohol Use: Yes Hx Substance Use: No Preferred Language: Indian Communication Ability: Effective Audio/Video Technician Required: No Beliefs That Will Affect Care: None marital status: Current Living Situation: Spouse current occupational status: unemployed Feels Safe at Home: Yes Childhood Exposure to Second-Hand Smoke: No caffeine: Yes Dental Care, Regularly: Yes Physical Activity Frequency: 3-4 Times per Week Seatbelt Use: always Sunscreen Use: Yes Allergies Allergies Allergy/AdvReac Type Severity Reaction Status Date / Time lisinopril Allergy Unknown SWELLING Verified 06/02/25 23:04 OF FACE hydralazine AdvReac Unknown Verified 06/02/25 23:04 nifedipine AdvReac Unknown Verified 06/02/25 23:04 nitrofurantoin AdvReac Unknown Verified 06/02/25 23:04 [From Macrobid] venlafaxine [From Effexor] AdvReac Unknown Verified 06/02/25 23:04 Home Meds Home Medications Medication Instructions Recorded Confirmed meclizine 25 mg tablet 25 mg PO TID PRN dizziness 05/16/22 06/02/25 cyanocobalamin (vitamin B-12) 1,000 mcg PO DAILY 04/17/24 06/02/25 1,000 mcg capsule cetirizine 10 mg tablet (Zyrtec) 10 mg PO DAILY PRN Allergy Symptoms 11/13/24 06/02/25 magnesium glycinate 400 mg PO DAILY 03/30/25 06/02/25 biotin 5 mg capsule 5 mg PO DAILY 06/02/25 06/02/25 buspirone 5 mg tablet 5 mg PO BID PRN Anxiety 06/02/25 06/02/25 psyllium husk 0.52 gram capsule 1.04 g PO DAILY 06/02/25 06/02/25 Previous Rx's Medication Instructions Recorded ondansetron 4 mg disintegrating 4 mg PO Q8H PRN nausea and 11/22/20 tablet vomiting #90 tabs chlorthalidone 25 mg tablet 12.5 mg (1/2 x 25 mg) PO DAILY #30 08/07/24 tabs linaclotide 290 mcg capsule 290 mcg PO DAILY #90 caps 12/26/24 (Linzess) levothyroxine 75 mcg tablet 75 mcg PO DAILY #90 tabs 01/28/25 metoprolol succinate 100 mg 100 mg PO DAILY #30 tabs 03/13/25 tablet,extended release 24 hr tirzepatide (weight loss) 2.5 2.5 mg (0.5 mL) subcut Q7D #2 mL 03/17/25 mg/0.5 mL subcutaneous pen injector (Zepbound) Results & Data (ED) Vital Signs Vital Signs - 24 hr 06/02/25 20:17 06/02/25 20:23 06/02/25 21:00 Temperature 36.8 C Temperature Source Oral Pulse Rate 103 H 95 H 97 H Pulse Rate from SpO2 Sensor 102 H Respiratory Rate 18 20 20 Respiratory Effort / Characteristics Non-Labored Spontaneous Respiratory Depth Normal Respiratory Pattern Regular Blood Pressure 154/93 H Blood Pressure Mean 113 Pulse Oximetry 98 95 98 Oxygen Delivery Method Room Air Room Air Sepsis Recent Fever Within 48 Hours No Sepsis New/Unexplained Change in Mental Status No Sepsis Action Taken by Nursing No Action Required 06/02/25 21:01 06/02/25 21:01 06/02/25 21:08 Temperature Temperature Source Pulse Rate 93 H Pulse Rate from SpO2 Sensor Respiratory Rate Respiratory Effort / Characteristics Respiratory Depth Respiratory Pattern Blood Pressure 139/101 H 139/101 H Blood Pressure Mean 107 107 Pulse Oximetry Oxygen Delivery Method Sepsis Recent Fever Within 48 Hours Sepsis New/Unexplained Change in Mental Status Sepsis Action Taken by Nursing 06/02/25 21:18 06/02/25 21:28 06/02/25 21:30 Temperature Temperature Source Pulse Rate 99 H Pulse Rate from SpO2 Sensor 99 H Respiratory Rate 21 Respiratory Effort / Characteristics Respiratory Depth Respiratory Pattern Blood Pressure 147/92 H 154/87 H Blood Pressure Mean 104 107 Pulse Oximetry 98 Oxygen Delivery Method Sepsis Recent Fever Within 48 Hours Sepsis New/Unexplained Change in Mental Status Sepsis Action Taken by Nursing 06/02/25 21:30 06/02/25 21:30 06/02/25 21:42 Temperature Temperature Source Pulse Rate 104 H 93 H Pulse Rate from SpO2 Sensor 104 H 93 H Respiratory Rate 24 19 Respiratory Effort / Characteristics Respiratory Depth Respiratory Pattern Blood Pressure 154/87 H Blood Pressure Mean 107 Pulse Oximetry 96 92 Oxygen Delivery Method Sepsis Recent Fever Within 48 Hours Sepsis New/Unexplained Change in Mental Status Sepsis Action Taken by Nursing 06/02/25 21:54 06/02/25 21:57 06/02/25 22:11 Temperature Temperature Source Pulse Rate 97 H 108 H Pulse Rate from SpO2 Sensor 98 H 107 H Respiratory Rate 32 H 25 H Respiratory Effort / Characteristics Respiratory Depth Respiratory Pattern Blood Pressure 143/77 H Blood Pressure Mean 90 Pulse Oximetry 98 98 Oxygen Delivery Method Sepsis Recent Fever Within 48 Hours Sepsis New/Unexplained Change in Mental Status Sepsis Action Taken by Nursing 06/02/25 22:11 06/02/25 22:21 Temperature Temperature Source Pulse Rate 96 H Pulse Rate from SpO2 Sensor 96 H Respiratory Rate 20 Respiratory Effort / Characteristics Respiratory Depth Respiratory Pattern Blood Pressure 143/77 H Blood Pressure Mean 90 Pulse Oximetry 97 Oxygen Delivery Method Sepsis Recent Fever Within 48 Hours Sepsis New/Unexplained Change in Mental Status Sepsis Action Taken by Detention Medications Current Medication List: was personally reviewed by me Laboratory Data Attestation: I reviewed the patient's lab results. 06/02/25 20:32 06/02/25 20:32 Lab Results 06/02/25 06/02/25 06/03/25 Range/Units 20:32 20:37 00:02 WBC 14.94 H (4.8-10.8) K/ul RBC 4.96 (4.20-5.40) M/uL Hgb 14.7 (12.0-16.0) g/dl POC Hgb 14.3 (12.0-16.0) g/dl Hct 41.5 (37.0-47.0) % POC Hct 42 (37-47) % MCV 83.7 (80.0-100.0) fL MCH 29.6 (25.0-34.0) pg MCHC 35.4 (32.0-36.0) g/dL RDW Std Deviation 35.0 L (36.4-46.3) fL RDW Coeff of Priya 11.7 (11.5-14.5) % Plt Count 338 (130-400) K/uL MPV 9.6 (9.4-12.4) fL Immature Gran % (Auto) 0.4 % Neut % (Auto) 84.3 % Lymph % (Auto) 10.8 % [place] % (Auto) 4.2 % Eos % (Auto) 0.1 % Baso % (Auto) 0.2 % Neut # (Auto) 12.60 H (1.40-6.50) K/uL Lymph # (Auto) 1.61 (1.20-3.40) K/uL [place] # (Auto) 0.63 H (0.11-0.59) K/uL Eos # (Auto) 0.01 (0.00-0.50) K/uL Baso # (Auto) 0.03 (0.00-0.20) K/uL Immature Gran # (Auto) 0.06 (0.01-0.20) K/uL PT 11.2 (9.0-12.0) Seconds INR 1.1 (0.9-1.1) APTT 32 H (21-31) Seconds PTT Ratio 1.2 POC Sodium 135 (135-144) mmol/L Sodium 134 L (136-145) mmol/L POC Potassium 2.8 L (3.3-5.0) mmol/L Potassium 2.9 L (3.5-5.1) mmol/L POC Chloride 94 L (101-112) mmol/L Chloride 96 L (98-107) mmol/L Carbon Dioxide 28 (21-32) mmol/L POC Total CO2 27 (24-31) mmol/L Anion Gap 10 (3-11) POC Anion Gap 17.0 (16-25) mmol/L POC BUN 12 (7-18) mg/dl BUN 12 (6-23) mg/dl Creatinine 0.86 (0.6-1.2) mg/dl POC Creatinine 0.9 (0.6-1.3) mg/dl Est Cr Clr Drug Dosing 72.6 ml/min eGFR 80.23 BUN/Creatinine Ratio 14.0 (10-20) Glucose 125 H (70-99(Fasting)) mg/dl POC Glucose (other) 126 H (70-99) mg/dl Calcium 10.6 H (8.6-10.3) mg/dl POC Ioniz Calcium Manav 1.22 (1.12-1.32) mmol/l Total Bilirubin 0.7 (0.2-1.0) mg/dl AST 18 (13-39) U/L ALT 14 (7-52) U/L Alkaline Phosphatase 91 (34-104) U/L Total Protein 7.9 (6.0-8.3) gm/dl Albumin 4.6 (3.4-5.0) gm/dl Globulin 3.3 (2.5-4.0) gm/dl Albumin/Globulin Ratio 1.4 (0.9-2) Lipase 34 (11-82) U/L HCG, Qual Negative (Negative) Urine Color Yellow Urine Appearance Clear (Clear) Urine pH 6.0 (4.5-7.5) Ur Specific [place] 1.036 H (1.000-1.030) Urine Protein Negative (Negative) Urine Glucose (UA) Negative (Negative) Urine Ketones 1+ H (Negative) Urine Blood Trace H (Negative) Urine Nitrite Negative (Negative) Urine Bilirubin Negative (Negative) Urine Urobilinogen Negative (Negative) Ur Leukocyte Esterase Negative (Negative) Urine WBC (Auto) 0-5 (0-5) /hpf Urine RBC (Auto) 0-2 (0-2) /hpf U Hyaline Cast (Auto) 0-2 (0-2) /lpf U Epithel Cells (Auto) 0-2 (0-2) /hpf Urine Bacteria (Auto) None Seen (None Seen) Urine Comment Administered Medications Discontinued Medications Diphenhydramine HCl (Diphenhydramine 50 Mg/Ml Vial) 12.5 mg IV NOW STA Stop: 06/02/25 21:51 Last Admin: 06/02/25 21:54 Dose: 12.5 mg Documented By: YAJAIRA Sodium Chloride (Nss) 1,000 mls @ 999 mls/hr IV .Q1H1M ONE Stop: 06/02/25 22:26 Last Infusion: 06/02/25 22:32 Dose: Infused Documented By: Admin: 06/02/25 21:28 Dose: 999 mls/hr Documented By: GIO Cefoxitin Sodium (Mefoxin) 2,000 mg in 60 mls @ 100 mls/hr IV NOW STA Stop: 06/02/25 23:21 Last Admin: 06/02/25 22:54 Dose: Not Given Documented By: YAJAIRA Piperacillin Sod/Tazobactam Sod (Zosyn) 4.5 gm in 100 mls @ 200 mls/hr IV NOW ONE; Protocol Stop: 06/02/25 23:17 Last Infusion: 06/02/25 23:30 Dose: Infused Documented By: Admin: 06/02/25 22:54 Dose: 200 mls/hr Documented By: YAJAIRA Ioversol (Optiray 320 100ml) 90 ml IV ONCE ONE Stop: 06/02/25 22:04 Last Admin: 06/02/25 22:03 Dose: 90 ml Documented By: JURGEN Metoclopramide HCl (Metoclopramide Hcl Inj 5 Mg/Ml 2 Ml Vial) 5 mg IV NOW STA Stop: 06/02/25 21:51 Last Admin: 06/02/25 21:54 Dose: 5 mg Documented By: YAJAIRA Morphine Sulfate (Morphine Sulfate 4 Mg/Ml 1 Ml Carp\Vial) 4 mg IV NOW STA Stop: 06/02/25 21:27 Last Admin: 06/02/25 21:28 Dose: 4 mg Documented By: GIO Ondansetron HCl (Ondansetron Inj 2 Mg/Ml 2 Ml Vial) 4 mg IV NOW STA Stop: 06/02/25 21:27 Last Admin: 06/02/25 21:28 Dose: 4 mg Documented By: GIO Imaging Data Radiologist's Impression: Abdomen/Pelvis CT 06/02/25 20:48 CR Exam(s): CT ABDOMEN + PELVIS With Contrast IV Amt: 90 ml optiray 320 EXAM: CT Abdomen and Pelvis With Intravenous Contrast CLINICAL HISTORY: Reason for exam: periumb and RLQ pain. TECHNIQUE: Axial computed tomography images of the abdomen and pelvis with intravenous contrast. CTDI is 21.06 mGy and DLP is 1003.7 mGy-cm. Automated exposure control was utilized for the study. A dose lowering technique was utilized adhering to the principles of ALARA. CONTRAST: Patient received 90 ml optiray 320 of IV contrast COMPARISON: PET/CT 05/06/2025 . FINDINGS: ABDOMEN: Liver: Unremarkable. Gallbladder and bile ducts: Unremarkable. Pancreas: Unremarkable. Spleen: Unremarkable. Adrenals: Unremarkable. Kidneys and ureters: Unremarkable. No obstructing stones. No hydronephrosis. Stomach and bowel: Unremarkable. PELVIS: Appendix: The appendix is inflamed and distended up to 1.5 cm. Periappendiceal fat stranding present. Gas fills and distends the appendix. No definitive perforation. No abscess. Bladder: Unremarkable. Reproductive: Unremarkable as visualized. ABDOMEN and PELVIS: Intraperitoneal space: Unremarkable. No free air. No significant fluid collection. Bones/joints: No acute fracture. Soft tissues: Unremarkable. Vasculature: Unremarkable. Lymph nodes: Unremarkable. IMPRESSION: Acute appendicitis. No perforation or abscess. Communications: Verify Receipt Electronically signed by: Luis Felipe Guallpa MD 06/02/25 22:40 PM Chest X-Ray 06/02/25 23:17 Chest radiograph, one view History: Preop Comparison: None Findings: Single AP view of the chest performed. No focal consolidation or pleural effusion. No pneumothorax. The cardiomediastinal silhouette is within normal limits. Normal pulmonary vascularity. No evidence for lymphadenopathy. No visualized bony or soft tissue abnormality. Impression: Normal chest radiograph Electronically signed by Jamar Joshi 06-02-2025 11:42 PM Discharge Plan Visit Data Chief Complaint: Abdominal Pain Stated Complaint: ABD PAIN ALL DAY, CONCERN ABOUT APPENDICITIS ED Provider: Cole Marley Discharge Problem: Acute appendicitis, Abdominal pain, Acute hypokalemia Patient Disposition: Admitted As Inpatient Condition: Good Forms Stand Alone Forms: [facility] [place] Prescriptions Prescriptions: No Action Linzess 290 mcg capsule 290 mcg PO DAILY Qty: 90 3RF Hold Instructions: insurance cost levothyroxine 75 mcg tablet 75 mcg PO DAILY Qty: 90 1RF Rx Instructions: Half tablet on Sunday only Full tablet rest of the days of the week metoprolol succinate 100 mg tablet extended release 24 hr 100 mg PO DAILY Qty: 30 5RF Zepbound 2.5 mg/0.5 mL pen injector 2.5 mg subcut Q7D Qty: 2 3RF ondansetron 4 mg tablet,disintegrating 4 mg PO Q8H PRN (Reason: nausea and vomiting) Qty: 90 1RF meclizine 25 mg tablet 25 mg PO TID PRN (Reason: dizziness) chlorthalidone 25 mg tablet 12.5 mg PO DAILY Qty: 30 5RF magnesium glycinate 100 mg magnesium capsule 400 mg PO DAILY cyanocobalamin (vitamin B-12) 1,000 mcg capsule 1,000 mcg PO DAILY cetirizine [Zyrtec] 10 mg tablet 10 mg PO DAILY PRN (Reason: Allergy Symptoms) buspirone 5 mg tablet 5 mg PO BID PRN (Reason: Anxiety) biotin 5 mg Capsule 5 mg PO DAILY psyllium husk 0.52 gram Capsule 1.04 g PO DAILY Referrals Referrals: Mariely Ponce MD [Primary Care Provider] - Discharge Problem: Acute appendicitis Qualifiers: Acute appendicitis type: with localized peritonitis Appendicitis gangrene presence: without gangrene Appendicitis perforation presence: without perforation Appendicitis abscess presence: without abscess Qualified Code(s): K 35.30 - Acute appendicitis with localized peritonitis, without perforation or gangrene Abdominal pain Qualifiers: Abdominal location: right lower quadrant Qualified Code(s): R10.31 - Right lower quadrant pain
[2025-06-02 21:03] LABS: Alanine Aminotransferase 14.0 U/L (7-52); Albumin Globulin Ratio 1.4 (0.9-2); Albumin Level 4.6 gm/dl (3.4-5.0); Alkaline Phosphatase 91.0 U/L (34-104); Anion Gap 10.0 (3-11); Bilirubin,Total 0.7 mg/dl (0.2-1.0); Blood Urea Nitrogen 12.0 mg/dl (6-23); Calcium 10.6 mg/dl (8.6-10.3); Carbon Dioxide 28.0 mmol/L (21-32); Chloride 96.0 mmol/L (98-107); Creatinine Clr Calc Pharmacy 72.6 ml/min; Globulin 3.3 gm/dl (2.5-4.0); Glucose 125.0 mg/dl (70-99(Fasting)); Lipase 34.0 U/L (11-82); Potassium 2.9 mmol/L (3.5-5.1); Sodium 134.0 mmol/L (136-145); Total Protein 7.9 gm/dl (6.0-8.3)
[2025-06-02] MEDS: ONDANSETRON INJ 2 MG/ML 2 ML VIAL IV STA (21:28)
[2025-06-02] MEDS: SODIUM CHLORIDE 0.9% 1,000 ML IV ONE (21:28)
[2025-06-02] MEDS: MoRPHine SULFATE 4 MG/ML 1 ML CARP\\VIAL IV STA (21:28)
[2025-06-02] MEDS: diphenhydrAMINE 50 MG/ML VIAL IV STA (21:54)
[2025-06-02] MEDS: METOCLOPRAMIDE HCL INJ 5 MG/ML 2 ML VIAL IV STA (21:54)
[2025-06-02] MEDS: OPTIRAY 320 100ml IV ONE (22:03)
--- NOTE | 2025-06-02 22:41 | CT Scan Report ---
Exam(s): CT ABDOMEN + PELVIS With Contrast IV Amt: 90 ml optiray 320 EXAM: CT Abdomen and Pelvis With Intravenous Contrast CLINICAL HISTORY: Reason for exam: periumb and RLQ pain. TECHNIQUE: Axial computed tomography images of the abdomen and pelvis with intravenous contrast. CTDI is 21.06 mGy and DLP is 1003.7 mGy-cm. Automated exposure control was utilized for the study. A dose lowering technique was utilized adhering to the principles of ALARA. CONTRAST: Patient received 90 ml optiray 320 of IV contrast COMPARISON: PET/CT 05/06/2025 . FINDINGS: ABDOMEN: Liver: Unremarkable. Gallbladder and bile ducts: Unremarkable. Pancreas: Unremarkable. Spleen: Unremarkable. Adrenals: Unremarkable. Kidneys and ureters: Unremarkable. No obstructing stones. No hydronephrosis. Stomach and bowel: Unremarkable. PELVIS: Appendix: The appendix is inflamed and distended up to 1.5 cm. Periappendiceal fat stranding present. Gas fills and distends the appendix. No definitive perforation. No abscess. Bladder: Unremarkable. Reproductive: Unremarkable as visualized. ABDOMEN and PELVIS: Intraperitoneal space: Unremarkable. No free air. No significant fluid collection. Bones/joints: No acute fracture. Soft tissues: Unremarkable. Vasculature: Unremarkable. Lymph nodes: Unremarkable. IMPRESSION: Acute appendicitis. No perforation or abscess. Communications: Verify Receipt Electronically signed by: Luis Felipe Guallpa MD 06/02/25 22:40 PM
[2025-06-02] MEDS: PIPERACILLIN/TAZOBACTAM 4.5 GM/100 ML BAG IV ONE (22:54)
[2025-06-02] MEDS: cefOXitin 2,000 MG/60 ML BAG IV STA (22:54)
[2025-06-02] MEDS ORDERED: ONDANSETRON INJ 2 MG/ML 2 ML VIAL IV PRN (23:09)
[2025-06-02] MEDS ORDERED: ACETAMINOPHEN 1,000 MG/100 ML VIAL IV PRN (23:09)
--- NOTE | 2025-06-02 23:24 | History & Physical Report ---
Date of Service June 02, 2025 Assessment & Plan (1) Appendicitis: Plan: Due to the patient's clinical presentation as well as the findings on labs and imaging she will be admitted to the surgical service proceeding as follows: Analgesics will be provided Antiemetics to be provided N.p.o. status will be implemented/maintained Will hydrate the patient with intravenous fluids, supplementing her potassium as she is noted to have hypokalemia We will recheck a chemistry profile in the morning to reassess her potassium Will check a test Will check a preoperative chest x-ray Will check a preoperative EKG The treating emergency room physician has initiated antibiotics in the form of Zosyn and these will continue At the present time the patient is nontoxicshe is normotensive without fever and only has a slight tachycardia. We are tentatively planning on having the patient undergo an appendectomy with Dr. Oliveira of [facility] physician of general surgery on 06/03/2025 Will use SCDs for DVT prevention, no chemical means with planned surgery Additional recommendations to be forthcoming based on her clinical course as it unfolds She will be a level 1 full code Addendum: EKG showed normal sinus rhythm without changes indicative of acute ischemia Chest x-ray showed no evidence of pneumonia Coagulation studies showed an INR 1.1 and a PTT of 32 seconds - test (-) Addendum (5:45 am) Patient noted to have hypokalemia at time of admission. She was given two 10 mEq K riders as well as provided with supplemental potassium and her IV fluids. Nursing staff subsequent notified me that she is complaining of irritation from her maintenance fluids and therefore the fluid was switched to normal saline solution without potassium. Repeat potassium level this morning shows potassium has increased to 3.2. Will provide her with 2 additional K riders of 10 mill equivalents each. Patient also reassessed at bedside. She notes continued right lower quadrant abdominal pain but it is no worse than what was noted in the emergency department. I discussed with nurse attending to the patient she has been afebrile hemodynamically stable. History of Present Illness Chief Complaint: Abdominal pain Primary Care Provider: Mariely Ponce MD This is a 55-year-old female who presented to the emergency department secondary to abdominal pain that began earlier this morning. The patient does admit that on 06/01/2025 she did not feel quite like herself and then developed abdominal pain which is located just inferior to her umbilicus. She notes that the pain does not radiate or have any other mitigating factors. She says that her last oral intake was at 7:30 AM this morning and she has not had much of an appetite the remainder of the day. She denies any fevers. She denies any prior abdominal surgeries. The patient does report that she had breast reduction surgery several years ago and developed a DVT in her left arm for which she took a short course of anticoagulants but notes that she has not been on anticoagulants since they have been discontinued. The patient also reports that she was recently diagnosed with lymphoma in November of this year. She follows with Dr. Walden locally. 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 She notes that she is not receiving any active treatment for this lymphoma and they are merely observing her with serial labs and imaging studies. Of note, the patient was noted to have some type of lesion in her right femur for which she is scheduled to see an orthopedic surgeon as there and are uncertain if this represents a possible malignant lesion. I did question patient by her diagnosis of lymphoma and she said that this was identified on routine lab work that she was having during an annual physical checkup with her primary care physician. She notes that she really had nothing in the way of symptomatology other than occasional night sweats which she felt was secondary to menopause. Since arrival to the emergency department this evening she has had labs and imaging which I independently reviewed. A CT scan of the abdomen pelvis was performed and this showed the patient had findings concerning for acute appendicitisthe appendix was noted to be inflamed and distended up to 1.5 cm with periappendiceal fat stranding. There is no evidence of perforation or abscess. Labs included CBC were white blood cell count was elevated 14.9. Hemoglobin and hematocrit as well as a platelet count were normal. Chemistry profile showed sodium was 134 with a potassium of 2.9. BUN and creatinine were both normal. There is no elevation of her LFTs or lipase. I did discuss with the nurse attending to the patient, and a near syncopal episode was reported when the patient tried to sit up. It was felt that the patient had a vasovagal episode as she was complaining of some abdominal pain at that time. Following this episode she was administered some analgesics and has not had any recurrence of this episode. At the time of my interview the patient was resting comfortably in bed and she was in no distress. Allergies Allergy/AdvReac Type Severity Reaction Status Date / Time lisinopril Allergy Unknown SWELLING Verified 06/02/25 23:04 OF FACE hydralazine AdvReac Unknown Verified 06/02/25 23:04 nifedipine AdvReac Unknown Verified 06/02/25 23:04 nitrofurantoin AdvReac Unknown Verified 06/02/25 23:04 [From Macrobid] venlafaxine [From Effexor] AdvReac Unknown Verified 06/02/25 23:04 Home Medications Medication Instructions Recorded Confirmed Type ondansetron 4 mg disintegrating 4 mg PO Q8H PRN nausea and 11/22/20 06/02/25 Rx tablet vomiting #90 tabs meclizine 25 mg tablet 25 mg PO TID PRN dizziness 05/16/22 06/02/25 History cyanocobalamin (vitamin B-12) 1,000 mcg PO DAILY 04/17/24 06/02/25 History 1,000 mcg capsule chlorthalidone 25 mg tablet 12.5 mg (1/2 x 25 mg) PO DAILY #30 08/07/24 06/02/25 Rx tabs cetirizine 10 mg tablet (Zyrtec) 10 mg PO DAILY PRN Allergy Symptoms 11/13/24 06/02/25 History linaclotide 290 mcg capsule 290 mcg PO DAILY #90 caps 12/26/24 06/02/25 Rx (Linzess) levothyroxine 75 mcg tablet 75 mcg PO DAILY #90 tabs 01/28/25 06/02/25 Rx metoprolol succinate 100 mg 100 mg PO DAILY #30 tabs 03/13/25 06/02/25 Rx tablet,extended release 24 hr tirzepatide (weight loss) 2.5 2.5 mg (0.5 mL) subcut Q7D #2 mL 03/17/25 06/02/25 Rx mg/0.5 mL subcutaneous pen injector (Zepbound) magnesium glycinate 400 mg PO DAILY 03/30/25 06/02/25 History biotin 5 mg capsule 5 mg PO DAILY 06/02/25 06/02/25 History buspirone 5 mg tablet 5 mg PO BID PRN Anxiety 06/02/25 06/02/25 History psyllium husk 0.52 gram capsule 1.04 g PO DAILY 06/02/25 06/02/25 History Past Med/Surg History Problem List (Updated 06/03/25 @ 00:28 by Cole Marley MD) Acute hypokalemia (Acute) Abdominal pain (Acute) Acute appendicitis (Acute) Appendicitis Menopause Menopause Thyroid nodule Fatigue Low grade B-cell lymphoma Overweight (BMI 25.0-29.9) Vitamin B12 deficiency Left knee DJD Vestibular migraine Migraine without aura and responsive to treatment Abnormal finding on MRI of brain Numbness and tingling of both feet Numbness and tingling of both upper extremities Health care maintenance Acne vulgaris (Acute) Anxiety (Acute) Chronic constipation (Acute) Dysplastic nevus (Acute) Jeramy's thyroiditis (Acute) Hearing loss (Acute) Hypertension (Acute) Hypothyroidism (Acute) Neoplasm of uncertain behavior of skin (Acute) Medical History Tiredness Left knee pain Head ache Insomnia Abnormality of right breast on screening mammogram Breast calcification, right Right ear injury Surgical History Status post breast reduction H/O oral surgery Family History Grandfather (Paternal) Coronary heart disease Cancer Grandfather (Maternal) Coronary heart disease Myocardial infarction Father Guillain-Clearfield syndrome Hypertension Mother Hypertension Grandmother (Maternal) Breast cancer Grandfather (Paternal) Stroke Denies family history of Ovarian cancer Prostate cancer Colorectal cancer Social History Smoking Status: Never smoker Second Hand Exposure: No; Do You Dip or Chew Tobacco: No; Hx Alcohol Use: Yes Alcohol type: wine Hx Substance Use: No Preferred Language: [place] Communication Ability: Effective Flight Communications Specialist Required: No Beliefs That Will Affect Care: None marital status: Current Living Situation: Spouse current occupational status: unemployed Other Information That Helps Us Care for You: No Feels Safe at Home: Yes Safety Concerns: Feels Safe At This Time Childhood Exposure to Second-Hand Smoke: No caffeine: Yes Dental Care, Regularly: Yes Physical Activity Frequency: 3-4 Times per Week Seatbelt Use: always Sunscreen Use: Yes Review of Systems Review of Systems: All systems reviewed & are unremarkable except as noted in HPI & below Physical Exam Constitutional: WD/WN, vitals as above Eyes: no conjunctival abnormality ENMT: Ears: no hearing impairment and no external ear abnormality Mouth: no oropharynx abnormality Neck: trachea midline Respiratory: normal respiratory effort; no respiratory distress and no labored breathing Cardiovascular: Rate/Rhythm: regular rate and regular rhythm Vessels: dorsalis pedis pulses present and radial pulses present Gastrointestinal (Abdomen): Patient's abdomen is soft and nonrigid. There is no rebound tenderness, guarding, or signs of peritonitis. The patient did have pain with palpation just inferior to the umbilicus and also to a greater degree on the right lower quadrant over McBurney's point. I did not appreciate any hernias on exam Musculoskeletal: No calf tenderness. Feet are warm and well-perfused Skin: no rashes Neurologic: moves all extremities Psychiatric: A+Ox3, euthymic affect Results & Data Results & Data Vital Signs (Past 12 Hours) Vital Signs Temp Pulse Resp BP Pulse Ox O2 Del Method 06/02/25 22:21 96 H 20 97 06/02/25 22:11 143/77 H 06/02/25 22:11 143/77 H 06/02/25 21:57 108 H 25 H 98 06/02/25 21:54 97 H 32 H 98 06/02/25 21:42 93 H 19 92 06/02/25 21:30 104 H 24 96 06/02/25 21:30 154/87 H 06/02/25 21:30 154/87 H 06/02/25 21:28 147/92 H 06/02/25 21:18 99 H 21 98 06/02/25 21:08 93 H 06/02/25 21:01 139/101 H 06/02/25 21:01 139/101 H 06/02/25 21:00 97 H 20 98 06/02/25 20:23 95 H 20 95 Room Air 06/02/25 20:17 36.8 C 103 H 18 154/93 H 98 Room Air PG Care Time/CCT Total # of Minutes Spent Total Time Spent with Patient: Total time spent is greater than 50% in coordination of care (as documented) at patient's floor/unit and/or counseling patient: Coding Level of Care Code 52516 INT INP/OBS CARE 3/75MIN Diagnoses Appendicitis K37
[2025-06-02 23:36] LABS: INR 1.1 (0.9-1.1); Partial Thromboplastin Time 32 Seconds (21-31); Prothrombin Time 11.2 Seconds (9.0-12.0)
[2025-06-02 23:39] LABS: Pregnancy Test, Serum Negative (Negative)
--- NOTE | 2025-06-02 23:42 | XRay Report ---
Chest radiograph, one view History: Preop Comparison: None Findings: Single AP view of the chest performed. No focal consolidation or pleural effusion. No pneumothorax. The cardiomediastinal silhouette is within normal limits. Normal pulmonary vascularity. No evidence for lymphadenopathy. No visualized bony or soft tissue abnormality. Impression: Normal chest radiograph Electronically signed by Jamar Joshi 06-02-2025 11:42 PM
[2025-06-03 00:17] LABS: Appearance Urine Clear (Clear); Bacteria Urine Automated None Seen (None Seen); Cast Urine Automated 0-2 /lpf (0-2); Epithelial Cell Urine Auto 0-2 /hpf (0-2); Glucose Urine UA Negative (Negative); RBC Urine Automated 0-2 /hpf (0-2); WBC Urine Automated 0-5 /hpf (0-5)
[2025-06-03] MEDS: POTASSIUM CHLORIDE / WTR 10 MEQ/100 ML PLCT IV SCH ×2 (01:05→06:09)
[2025-06-03] MEDS: SODIUM CHLORIDE 0.9% 1,000 ML IV ONE (01:05)
[2025-06-03] MEDS: MoRPHine SULFATE 4 MG/ML 1 ML CARP\\VIAL IV PRN (01:05)
[2025-06-03] MEDS: SODIUM CHLOR 0.45% + 20MEQ KCL 20 MEQ/1,000 ML BAG IV SCH (03:14)
[2025-06-03] MEDS ORDERED: busPIRone 5 MG TAB PO PRN (04:50)
[2025-06-03] MEDS: SODIUM CHLORIDE 0.9% 1,000 ML IV SCH (05:34)
[2025-06-03] MEDS: PIPERACILLIN/TAZOBACTAM 4.5 GM/100 ML BAG IV SCH (05:34)
[2025-06-03] MEDS: LEVOTHYROXINE SODIUM 75 MCG TABLET PO SCH (05:34)
[2025-06-03 05:41] LABS: Anion Gap 7.0 (3-11); Blood Urea Nitrogen 8.0 mg/dl (6-23); Calcium 8.9 mg/dl (8.6-10.3); Carbon Dioxide 27.0 mmol/L (21-32); Chloride 101.0 mmol/L (98-107); Creatinine Clr Calc Pharmacy 82.1 ml/min; Glucose 126.0 mg/dl (70-99(Fasting)); Potassium 3.2 mmol/L (3.5-5.1); Sodium 135.0 mmol/L (136-145)
--- NOTE | 2025-06-03 07:49 | History & Physical Bridge Note ---
Date of Service June 03, 2025 History & Physical Bridge Note I have examined the patient, reviewed the History & Physical and in the interval since the performance of the History & Physical I have noted the following changes of clinical significance: no changes noted Discussed risks as well as options. We discussed bleeding, infection, injury to other organ or structure, DVT, PE, SD, CVA etc. Minor discussion I answered all of her questions. Will proceed today with laparoscopic appendectomy.
[2025-06-03] MEDS: METOPROLOL SUCC 50MG EXT REL TAB PO SCH (08:11)
[2025-06-03] MEDS ORDERED: ONDANSETRON INJ 2 MG/ML 2 ML VIAL IV PRN ×2 (08:42→09:09)
[2025-06-03] MEDS ORDERED: ATROPINE SULFATE 0.1 MG/ML 10ML SYR IV PRN ×2 (08:42→09:09)
--- NOTE | 2025-06-03 09:06 | Anesthesiology Consultation ---
Date of Service June 03, 2025 Assessment & Plan Chart Review Chart Review: Acceptable Risk for Surgery Consults Requested none ASA ASA2 Proposed Anesthesia Anesthesia Type: General Risk / Benefits Reviewed With: PT / POA / Parent / Guardian, Accepts Plan and Informed Consent Obtained History Surgery Operation Date: 06/03/25 09:50 Proposed Procedures p Laparoscopic Appendectomy, Possible Open - Eber Oliveira, DO Height/Weight Height: 5 ft 4 in Weight: 75.7 kg Allergies Allergy/AdvReac Type Severity Reaction Status Date / Time lisinopril Allergy Unknown SWELLING Verified 06/02/25 23:04 OF FACE hydralazine AdvReac Unknown Verified 06/02/25 23:04 nifedipine AdvReac Unknown Verified 06/02/25 23:04 nitrofurantoin AdvReac Unknown Verified 06/02/25 23:04 [From Macrobid] venlafaxine [From Effexor] AdvReac Unknown Verified 06/02/25 23:04 Medications Home Medications Medication Instructions Recorded Confirmed Last Taken ondansetron 4 mg disintegrating 4 mg PO Q8H PRN nausea and 11/22/20 06/02/25 Unknown tablet vomiting #90 tabs meclizine 25 mg tablet 25 mg PO TID PRN dizziness 05/16/22 06/02/25 Unknown cyanocobalamin (vitamin B-12) 1,000 mcg PO DAILY 04/17/24 06/02/25 Unknown 1,000 mcg capsule chlorthalidone 25 mg tablet 12.5 mg (1/2 x 25 mg) PO DAILY #30 08/07/24 06/02/25 Unknown tabs cetirizine 10 mg tablet (Zyrtec) 10 mg PO DAILY PRN Allergy Symptoms 11/13/24 06/02/25 Unknown linaclotide 290 mcg capsule 290 mcg PO DAILY #90 caps 12/26/24 06/02/25 Unknown (Linzess) levothyroxine 75 mcg tablet 75 mcg PO DAILY #90 tabs 01/28/25 06/02/25 Unknown metoprolol succinate 100 mg 100 mg PO DAILY #30 tabs 03/13/25 06/02/25 Unknown tablet,extended release 24 hr tirzepatide (weight loss) 2.5 2.5 mg (0.5 mL) subcut Q7D #2 mL 03/17/25 06/02/25 Unknown mg/0.5 mL subcutaneous pen injector (Zepbound) magnesium glycinate 400 mg PO DAILY 03/30/25 06/02/25 Unknown biotin 5 mg capsule 5 mg PO DAILY 06/02/25 06/02/25 Unknown buspirone 5 mg tablet 5 mg PO BID PRN Anxiety 06/02/25 06/02/25 Unknown psyllium husk 0.52 gram capsule 1.04 g PO DAILY 06/02/25 06/02/25 Unknown Active Medications Generic Name Dose Route Start Last Admin Trade Name Freq PRN Reason Stop Dose Admin Sodium Chloride 1,000 mls @ 75 mls/hr 06/03/25 04:30 06/03/25 05:34 Nss IV 06/06/25 04:29 75 mls/hr .[id number] JULIETA Administration Piperacillin Sod/Tazobactam Sod 4.5 gm in 100 mls @ 25 mls/hr 06/03/25 05:00 06/03/25 05:34 Zosyn IV 06/13/25 04:59 25 mls/hr Q8H JULIETA Administration Protocol Levothyroxine Sodium 75 mcg 06/03/25 06:30 06/03/25 05:34 Levothyroxine Sodium 75 Mcg Tablet PO 07/03/25 06:29 75 mcg [id number] JULIETA Administration Metoprolol Succinate 100 mg 06/03/25 09:00 06/03/25 08:11 Metoprolol Succ 50mg Ext Rel Tab PO 07/03/25 08:59 100 mg DAILY JULIETA Administration Morphine Sulfate 3 mg 06/02/25 23:09 06/03/25 01:05 Morphine Sulfate 4 Mg/Ml 1 Ml Carp\Vial IV 06/16/25 23:08 3 mg Q3H PRN Administration Severe Pain (Scale 7, 8, 9,10) NPO Date Last Intake of Fluids: 06/02/25 Time Last Intake of Fluids: 18:00 Last Intake of Fluids Comment: small sip with pill at 0817 Date Last Intake of Solids: 06/02/25 Time Last Intake of Solids: 08:00 Past Medical History Medical History Tiredness Left knee pain Head ache Insomnia Abnormality of right breast on screening mammogram Breast calcification, right Right ear injury Exercise / Class Metabolic Activity II 4-5 Yardwork/Stairs/Walk up hill Past Family History Family History Grandfather (Paternal) Coronary heart disease Cancer Grandfather (Maternal) Coronary heart disease Myocardial infarction Father Guillain-Dwale syndrome Hypertension Mother Hypertension Grandmother (Maternal) Breast cancer Grandfather (Paternal) Stroke Denies family history of Ovarian cancer Prostate cancer Colorectal cancer Past Surgical History Surgical History Status post breast reduction H/O oral surgery Past Anesthesia History hx of PONV History of PONV History of PONV Social History Smoking Status: Never smoker Do You Dip or Chew Tobacco: No Hx Alcohol Use: Yes Alcohol type: wine alcohol intake frequency: a few times a month Hx Substance Use: No substance use type: does not use Review of Systems Respiratory: no problem reported Cardiovascular: no problem reported Physical Exam Vital Signs Last Vital Signs Temp 38.2 C H 06/03/25 08:25 Pulse 104 H 06/03/25 08:25 Resp 20 06/03/25 08:25 BP 144/86 H 06/03/25 08:25 Pulse Ox 99 06/03/25 08:25 O2 Del Method Room Air 06/03/25 08:25 Constitutional no acute distress ENMT Mouth: no TMJ abnormality and no dentures Mallampati Class: II Neck normal visual inspection Respiratory normal respiratory effort Auscultation: lungs clear to auscultation bilaterally Cardiovascular Rate/Rhythm: regular rate and regular rhythm Musculoskeletal Spine: normal cervical ROM Neurologic moves all extremities Psychiatric Orientation: alert and oriented x 3 Testing Laboratory Results 06/02/25 20:32 06/03/25 05:06 PT 11.2 Seconds (9.0-12.0) 06/02/25 20:32 INR 1.1 (0.9-1.1) 06/02/25 20:32 APTT 32 Seconds (21-31) H 06/02/25 20:32 Urine Color Yellow 06/03/25 00:02 Urine Appearance Clear (Clear) 06/03/25 00:02 Urine pH 6.0 (4.5-7.5) 06/03/25 00:02 Ur Specific [place] 1.036 (1.000-1.030) H 06/03/25 00:02 Urine Protein Negative (Negative) 06/03/25 00:02 Urine Glucose (UA) Negative (Negative) 06/03/25 00:02 Urine Ketones 1+ (Negative) H 06/03/25 00:02 Urine Nitrite Negative (Negative) 06/03/25 00:02 Ur Leukocyte Esterase Negative (Negative) 06/03/25 00:02 Urine WBC (Auto) 0-5 /hpf (0-5) 06/03/25 00:02 Urine RBC (Auto) 0-2 /hpf (0-2) 06/03/25 00:02 U Hyaline Cast (Auto) 0-2 /lpf (0-2) 06/03/25 00:02 U Epithel Cells (Auto) 0-2 /hpf (0-2) 06/03/25 00:02 Urine Bacteria (Auto) None Seen (None Seen) 06/03/25 00:02
--- NOTE | 2025-06-03 09:09 | Anesthesiology Consultation ---
Date of Service June 03, 2025 Assessment & Plan Chart Review Chart Review: Acceptable Risk for Surgery Consults Requested none ASA ASA2 Proposed Anesthesia Anesthesia Type: General Risk / Benefits Reviewed With: PT / POA / Parent / Guardian, Accepts Plan and Informed Consent Obtained History Surgery Operation Date: 06/03/25 09:50 Proposed Procedures p Laparoscopic Appendectomy, Possible Open - Eber Oliveira, DO Height/Weight Height: 5 ft 4 in Weight: 75.7 kg Allergies Allergy/AdvReac Type Severity Reaction Status Date / Time lisinopril Allergy Unknown SWELLING Verified 06/02/25 23:04 OF FACE hydralazine AdvReac Unknown Verified 06/02/25 23:04 nifedipine AdvReac Unknown Verified 06/02/25 23:04 nitrofurantoin AdvReac Unknown Verified 06/02/25 23:04 [From Macrobid] venlafaxine [From Effexor] AdvReac Unknown Verified 06/02/25 23:04 Medications Home Medications Medication Instructions Recorded Confirmed Last Taken ondansetron 4 mg disintegrating 4 mg PO Q8H PRN nausea and 11/22/20 06/02/25 Unknown tablet vomiting #90 tabs meclizine 25 mg tablet 25 mg PO TID PRN dizziness 05/16/22 06/02/25 Unknown cyanocobalamin (vitamin B-12) 1,000 mcg PO DAILY 04/17/24 06/02/25 Unknown 1,000 mcg capsule chlorthalidone 25 mg tablet 12.5 mg (1/2 x 25 mg) PO DAILY #30 08/07/24 06/02/25 Unknown tabs cetirizine 10 mg tablet (Zyrtec) 10 mg PO DAILY PRN Allergy Symptoms 11/13/24 06/02/25 Unknown linaclotide 290 mcg capsule 290 mcg PO DAILY #90 caps 12/26/24 06/02/25 Unknown (Linzess) levothyroxine 75 mcg tablet 75 mcg PO DAILY #90 tabs 01/28/25 06/02/25 Unknown metoprolol succinate 100 mg 100 mg PO DAILY #30 tabs 03/13/25 06/02/25 Unknown tablet,extended release 24 hr tirzepatide (weight loss) 2.5 2.5 mg (0.5 mL) subcut Q7D #2 mL 03/17/25 06/02/25 Unknown mg/0.5 mL subcutaneous pen injector (Zepbound) magnesium glycinate 400 mg PO DAILY 03/30/25 06/02/25 Unknown biotin 5 mg capsule 5 mg PO DAILY 06/02/25 06/02/25 Unknown buspirone 5 mg tablet 5 mg PO BID PRN Anxiety 06/02/25 06/02/25 Unknown psyllium husk 0.52 gram capsule 1.04 g PO DAILY 06/02/25 06/02/25 Unknown Active Medications Generic Name Dose Route Start Last Admin Trade Name Freq PRN Reason Stop Dose Admin Sodium Chloride 1,000 mls @ 75 mls/hr 06/03/25 04:30 06/03/25 05:34 Nss IV 06/06/25 04:29 75 mls/hr .[id number] JULIETA Administration Piperacillin Sod/Tazobactam Sod 4.5 gm in 100 mls @ 25 mls/hr 06/03/25 05:00 06/03/25 05:34 Zosyn IV 06/13/25 04:59 25 mls/hr Q8H JULIETA Administration Protocol Levothyroxine Sodium 75 mcg 06/03/25 06:30 06/03/25 05:34 Levothyroxine Sodium 75 Mcg Tablet PO 07/03/25 06:29 75 mcg [id number] JULIETA Administration Metoprolol Succinate 100 mg 06/03/25 09:00 06/03/25 08:11 Metoprolol Succ 50mg Ext Rel Tab PO 07/03/25 08:59 100 mg DAILY JULIETA Administration Morphine Sulfate 3 mg 06/02/25 23:09 06/03/25 01:05 Morphine Sulfate 4 Mg/Ml 1 Ml Carp\Vial IV 06/16/25 23:08 3 mg Q3H PRN Administration Severe Pain (Scale 7, 8, 9,10) NPO Date Last Intake of Fluids: 06/02/25 Time Last Intake of Fluids: 18:00 Last Intake of Fluids Comment: small sip with pill at 0817 Date Last Intake of Solids: 06/02/25 Time Last Intake of Solids: 08:00 Past Medical History Medical History Tiredness Left knee pain Head ache Insomnia Abnormality of right breast on screening mammogram Breast calcification, right Right ear injury Exercise / Class Metabolic Activity II 4-5 Yardwork/Stairs/Walk up hill Past Family History Family History Grandfather (Paternal) Coronary heart disease Cancer Grandfather (Maternal) Coronary heart disease Myocardial infarction Father Guillain-Sidney syndrome Hypertension Mother Hypertension Grandmother (Maternal) Breast cancer Grandfather (Paternal) Stroke Denies family history of Ovarian cancer Prostate cancer Colorectal cancer Past Surgical History Surgical History Status post breast reduction H/O oral surgery Past Anesthesia History hx of PONV History of PONV History of PONV Social History Smoking Status: Never smoker Do You Dip or Chew Tobacco: No Hx Alcohol Use: Yes Alcohol type: wine alcohol intake frequency: a few times a month Hx Substance Use: No substance use type: does not use Review of Systems Gastrointestinal: + nausea Physical Exam Vital Signs Last Vital Signs Temp 38.2 C H 06/03/25 08:25 Pulse 104 H 06/03/25 08:25 Resp 20 06/03/25 08:25 BP 144/86 H 06/03/25 08:25 Pulse Ox 99 06/03/25 08:25 O2 Del Method Room Air 06/03/25 08:25 ENMT Thyromental Distance: > or= 3.5 Finger Breadths Mallampati Class: II Neck normal visual inspection Respiratory normal respiratory effort, lungs clear to auscultation Auscultation: lungs clear to auscultation bilaterally Cardiovascular RRR, no murmur, no edema Rate/Rhythm: regular rate and regular rhythm Musculoskeletal Spine: normal cervical ROM Neurologic moves all extremities Psychiatric Orientation: alert and oriented x 3 Testing Laboratory Results 06/02/25 20:32 06/03/25 05:06 PT 11.2 Seconds (9.0-12.0) 06/02/25 20:32 INR 1.1 (0.9-1.1) 06/02/25 20:32 APTT 32 Seconds (21-31) H 06/02/25 20:32 Urine Color Yellow 06/03/25 00:02 Urine Appearance Clear (Clear) 06/03/25 00:02 Urine pH 6.0 (4.5-7.5) 06/03/25 00:02 Ur Specific [place] 1.036 (1.000-1.030) H 06/03/25 00:02 Urine Protein Negative (Negative) 06/03/25 00:02 Urine Glucose (UA) Negative (Negative) 06/03/25 00:02 Urine Ketones 1+ (Negative) H 06/03/25 00:02 Urine Nitrite Negative (Negative) 06/03/25 00:02 Ur Leukocyte Esterase Negative (Negative) 06/03/25 00:02 Urine WBC (Auto) 0-5 /hpf (0-5) 06/03/25 00:02 Urine RBC (Auto) 0-2 /hpf (0-2) 06/03/25 00:02 U Hyaline Cast (Auto) 0-2 /lpf (0-2) 06/03/25 00:02 U Epithel Cells (Auto) 0-2 /hpf (0-2) 06/03/25 00:02 Urine Bacteria (Auto) None Seen (None Seen) 06/03/25 00:02
--- NOTE | 2025-06-03 09:37 | Electrocardiogram Report ---
Test Reason : Blood Pressure : */* mmHG Vent. Rate : 97 BPM Atrial Rate : 97 BPM P-R Int : 192 ms QRS Dur : 90 ms QT Int : 346 ms P-R-T Axes : 17 1 -22 degrees QTcB Int : 439 ms Normal sinus rhythm Low voltage QRS Poor R wave progression, consider anterior PR vs. lead placement vs. LVH Abnormal ECG When compared with ECG of 07-Jan-2017 22:47, No significant change was found Confirmed by Juan Manuel Grant [id number] on 06/03/2025 9:36:51 AM Referred By: REFERRED SELF Confirmed By: Juan Manuel Grant
[2025-06-03] MEDS ORDERED: LIDOCAINE 2% 2 ML VIAL/AMP(20MG/ML) INFIL ONE (10:14)
[2025-06-03] MEDS ORDERED: ROCURONIUM BROMIDE 10 MG/ML 5 ML VIAL IV ONE (10:14)
[2025-06-03] MEDS ORDERED: DEXAMETHASONE SOD INJ 4 MG/ML VIAL ONE (10:14)
[2025-06-03] MEDS ORDERED: NEOSTIGMINE METHYLSULFATE 1 MG/ML 10ML VIAL ONE (10:14)
[2025-06-03] MEDS ORDERED: PROPOFOL IV EMULSION 10 MG/ML 20 ML VIAL IV ONE (10:14)
[2025-06-03] MEDS ORDERED: SUGAMMADEX SODIUM 200 MG/2 ML VIAL IV ONE ×2 (10:14→11:00)
[2025-06-03] MEDS ORDERED: ONDANSETRON INJ 2 MG/ML 2 ML VIAL ONE (10:14)
[2025-06-03] MEDS ORDERED: GLYCOPYRROLATE 0.2 MG/ML VIAL ONE (10:14)
[2025-06-03] MEDS ORDERED: KETOROLAC 30 MG/ML VIAL ONE (10:20)
[2025-06-03] MEDS ORDERED: MIDAZOLAM HCL 1 MG/ML 2ML VIAL ONE (10:20)
[2025-06-03] MEDS: BUPIVACAINE/EPINEPHRINE 0.5% MPF 1:200,000 30 ML VIAL ONE (10:42)
--- NOTE | 2025-06-03 11:52 | Anesthesiology Progress Note ---
Date of Service June 03, 2025 Anesthesia Post Procedure Vital Signs Vital Signs: Temp Pulse Pulse Pulse Resp BP BP 06/03/25 11:40 36.5 C 94 H 14 127/78 06/03/25 11:30 92 H 15 129/77 06/03/25 11:20 94 H 20 121/70 06/03/25 11:10 87 18 124/75 06/03/25 11:04 36.7 C 88 12 131/78 06/03/25 08:25 38.2 C H 104 H 20 144/86 H 06/03/25 07:58 37.3 C 99 H 18 126/75 06/03/25 06:37 102 H 06/03/25 04:40 37.1 C 114 H 16 126/83 06/03/25 04:25 101 H 18 122/77 06/03/25 03:32 91 H 18 107/71 06/03/25 01:07 99 H 06/03/25 01:00 100 H 15 130/85 06/02/25 22:21 96 H 20 06/02/25 22:11 143/77 H 06/02/25 22:11 143/77 H 06/02/25 21:57 108 H 25 H 06/02/25 21:54 97 H 32 H 06/02/25 21:42 93 H 19 06/02/25 21:30 104 H 24 06/02/25 21:30 154/87 H 06/02/25 21:30 154/87 H 06/02/25 21:28 147/92 H 06/02/25 21:18 99 H 21 06/02/25 21:08 93 H 06/02/25 21:01 139/101 H 06/02/25 21:01 139/101 H 06/02/25 21:00 97 H 20 06/02/25 20:23 95 H 20 06/02/25 20:17 36.8 C 103 H 18 154/93 H Pulse Ox O2 Del Method O2 Flow Rate 06/03/25 11:40 97 Room Air 06/03/25 11:30 94 Room Air 06/03/25 11:20 100 Oxymask 4 06/03/25 11:10 100 Oxymask 6 06/03/25 11:04 98 Oxymask 6 06/03/25 08:25 99 Room Air 06/03/25 07:58 94 Room Air 06/03/25 06:37 06/03/25 04:40 98 Room Air 06/03/25 04:25 96 Room Air 06/03/25 03:32 91 Room Air 06/03/25 01:07 06/03/25 01:00 92 Room Air 06/02/25 22:21 97 06/02/25 22:11 06/02/25 22:11 06/02/25 21:57 98 06/02/25 21:54 98 06/02/25 21:42 92 06/02/25 21:30 96 06/02/25 21:30 06/02/25 21:30 06/02/25 21:28 06/02/25 21:18 98 06/02/25 21:08 06/02/25 21:01 06/02/25 21:01 06/02/25 21:00 98 06/02/25 20:23 95 Room Air 06/02/25 20:17 98 Room Air Pain Intensity Abdomen: Pain Intensity: 1 Transfer of Care Handoff Completed per policy Notes Mental Status: alert / awake / arousable Patient Amnestic to Procedure: Yes Nausea / Vomiting: adequately controlled Pain: adequately controlled Airway Patency, RR, SpO2: stable & adequate BP & HR: stable & adequate Hydration State: stable & adequate Anesthetic Complications: no major complications apparent
[2025-06-03] MEDS ORDERED: MoRPHine SULFATE 4 MG/ML 1 ML CARP\\VIAL IV PRN (12:03)
[2025-06-03 14:52] VITALS: O2SAT 96
[2025-06-03 15:13] VITALS: BP 116/77; PULSE 85; RESP 18; TEMP 98.2
--- NOTE | 2025-06-03 16:05 | Operative Report ---
PG Post Operative Report Pre & Post Diagnosis Operation Date: 06/03/25 09:50 Pre-Op Diagnosis: Acute appendicitis Post-Op Diagnosis: Acute appendicitis I identified the patient and participated in the time-out.: Yes Procedure Operation Date: 06/03/25 09:50 Actual Procedures p Laparoscopic Appendectomy(Not Applicable) - Eber Oliveira DO Surgeon Eber Oliveira DO Eyelet Punch Operator ata Robertson Estimated Blood Loss 5 Findings Consistent with Post-Op Diagnosis Specimens appendix Description of Procedure After informed consent was obtained the patient was taken to the operating room and placed in supine position. After successful intubation a Waller catheter was placed and the left arm was tucked. A Waller catheter was inserted sterilely. I began by making a periumbilical incision with an 11 blade scalpel and carried this down through the soft tissue using electrocautery. The anterior rectus fascia was opened using electrocautery and 2 #0 Vicryl stay sutures were placed. The peritoneum was elevated using hemostats and incised under direct vision using a Metzenbaum scissor. A finger sweep was performed. A 12 mm Rodriguez trocar was placed and the abdomen was insufflated to 18 mmHg. A laparoscope was inserted and the abdomen was examined in 360. A suprapubic 5 mm port and a left lower quadrant 12 mm port were placed under direct vision. The patient was air planed to the left as well as placed in a slight Trendelenburg position. We began by looking in the right lower quadrant. We were able to readily identify the appendix and it was grossly inflamed. It had not perforated. There is a small amount of purulent fluid in the right lower quadrant and the pelvis. We immediately irrigated and suctioned this out. I was able to use primarily blunt dissection to pull the appendix away from the right lower quadrant sidewall. I was then able to use a MAGO brown cartridge stapler to transect first the mesen robyn of the appendix followed by the appendix itself at its base with the cecum. It was then placed into an Endo Catch bag and removed from the camera port site. We thoroughly irrigated the right lower quadrant as well as the pelvis. There was adequate hemostasis. I ran the small bowel backwards from the terminal ileum for about 6 feet all of which was normal. All the peritoneal surfaces were normal. Small/ large bowel, liver, stomach etc. all appeared grossly normal. We did a final irrigation and then removed all the trochars and desufflated the abdomen. The fascia of the camera port as well as the left lower quadrant were closed using 0 Vicryl in [id number] fashion. Wounds were all irrigated and closed using 4-0 Monocryl. Marcaine was injected around them for postoperative analgesia and skin glue used as a dressing. The patient was awakened extubated and transferred to recovery in stable condition. My physician's mental health assistant was present through the entire case. She assisted with prepping the patient and helped with exposure for port placement, helped run the camera and helped with fascial/wound closure at the end of the procedure as well as dressing placement. I attest to the content of the Intraoperative Record and any orders documented therein. Any exceptions are noted below. I attest to the content of the Intraoperative Record and any orders documented therein. Any exceptions are noted below.
--- NOTE | 2025-06-03 20:02 | Discharge Summary ---
Date of Service June 03, 2025 Date of admission: 06/02/2025 Date of discharge: 06/03/2025 Admission HPI Per Admitting Provider This is a 55-year-old female who presented to the emergency department secondary to abdominal pain that began earlier this morning. The patient does admit that on 06/01/2025 she did not feel quite like herself and then developed abdominal pain which is located just inferior to her umbilicus. She notes that the pain does not radiate or have any other mitigating factors. She says that her last oral intake was at 7:30 AM this morning and she has not had much of an appetite the remainder of the day. She denies any fevers. She denies any prior abdominal surgeries. The patient does report that she had breast reduction surgery several years ago and developed a DVT in her left arm for which she took a short course of anticoagulants but notes that she has not been on anticoagulants since they have been discontinued. The patient also reports that she was recently diagnosed with lymphoma in November of this year. She follows with Dr. Walden locally. 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 She notes that she is not receiving any active treatment for this lymphoma and they are merely observing her with serial labs and imaging studies. Of note, the patient was noted to have some type of lesion in her right femur for which she is scheduled to see an orthopedic surgeon as there and are uncertain if this represents a possible malignant lesion. I did question patient by her diagnosis of lymphoma and she said that this was identified on routine lab work that she was having during an annual physical checkup with her primary care physician. She notes that she really had nothing in the way of symptomatology other than occasional night sweats which she felt was secondary to menopause. Since arrival to the emergency department this evening she has had labs and imaging which I independently reviewed. A CT scan of the abdomen pelvis was performed and this showed the patient had findings concerning for acute appendicitisthe appendix was noted to be inflamed and distended up to 1.5 cm with periappendiceal fat stranding. There is no evidence of perforation or abscess. Labs included CBC were white blood cell count was elevated 14.9. Hemoglobin and hematocrit as well as a platelet count were normal. Chemistry profile showed sodium was 134 with a potassium of 2.9. BUN and creatinine were both normal. There is no elevation of her LFTs or lipase. I did discuss with the nurse attending to the patient, and a near syncopal episode was reported when the patient tried to sit up. It was felt that the patient had a vasovagal episode as she was complaining of some abdominal pain at that time. Following this episode she was administered some analgesics and has not had any recurrence of this episode. At the time of my interview the patient was resting comfortably in bed and she was in no distress. Discharge Data Consultations 06/02/25 22:47 ED Decision to Admit Stat Procedures Performed Operation Date: 06/03/25 09:50 Actual Procedures p Laparoscopic Appendectomy(Not Applicable) - Eber Oliveira, Hospital Course (1) Acute appendicitis: This patient presented to the emergency department at [facility] on 06/02/[address] secondary to [address] scan of the abdomen pelvis raise concern for acute appendicitis. The patient was therefore admitted to the surgical service and placed on intravenous antibiotics. The day following admission she was taken to the operating room by Dr. Binh Oliveira where he performed a laparoscopic appendectomy. The patient was deemed stable for discharge home following this procedure. She was instructed on appropriate care, diet, activity and instructed to follow-up Dr. Oliveira in the clinic in 2 weeks. Coding Level of Care Code None Diagnoses Acute appendicitis K35.30 Acute appendicitis type: with localized peritonitis Appendicitis abscess presence: without abscess Appendicitis gangrene presence: without gangrene Appendicitis perforation presence: without perforation
[2025-06-07] MEDS ORDERED: LEVOTHYROXINE SODIUM 75 MCG TABLET PO SCH (06:30)
== END 2025-06-03 15:42 | disposition home or self-care (01) | DRG 398 ==
LOC: ED 20:11 → 3E 23:36